=== PATIENT | male | born 1950 ===

== ENCOUNTER 2017-06-09 05:46 | Inpatient (IN) | payer MEDICAID, OTHER ==
[2017-06-09] MEDS ORDERED: Bismuth Subsalicylate 262 mg/15 ml Sus (240 ml) PO PRN (06:45)
[2017-06-09] MEDS ORDERED: Magnesium Hydroxide Susp 30 ml UD PO PRN (06:45)
[2017-06-09] MEDS ORDERED: Alum-Mag Hydrox-Simethicone Susp (30 mL) PO PRN (06:45)
[2017-06-09 06:49] VITALS: BMI 27.3
[2017-06-09 08:41] LABS: T4 6.93 ug/dl (5.5-11.0)
[2017-06-09 08:54] LABS: THYROID STIMULATING HORMONE 1.16 mIU/ML (0.46-4.68)
[2017-06-09 10:47] LABS: IRON 75 ug/dL (49-181)
[2017-06-09 12:12] LABS: FOLATE 10.5 ng/mL
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
[2017-06-10 07:40] LABS: BASO # 0.1 K/uL (0.0-0.2); BASO % 0.9 % (0.0-2.0); EOS # 0.3 K/uL (0.0-0.7); EOS % 5.2 % (0.0-4.0); HEMATOCRIT 41.4 % (35.0-51.0); LYMPH # 2.3 K/uL (1.0-4.3); MEAN CELL VOLUME 86.6 fl (80.0-94.0); MEAN CORPUSCULAR HEMOGLOBIN 28.2 pg (27.0-31.0); MEAN CORPUSCULAR HGB CONC 32.6 g/dL (33.0-37.0); MEAN PLATELET VOLUME 9.6 fl (7.2-11.7); MONO # 0.6 K/uL (0.0-0.8); MONO % 10.9 % (0.0-10.0); NEUT # 2.4 K/uL (1.8-7.0); NRBC % 0.1 % (0.0-0.0); RED CELL DISTRIBUTION WIDTH 14.8 % (11.5-14.5); WHITE BLOOD COUNT 5.6 K/uL (4.8-10.8)
[2017-06-10 08:02] LABS: ALB/GLOB RATIO 1.4 (1.0-2.1); ALKALINE PHOSPHATASE 38 U/L (38-126); ALT/SGPT 40 U/L (21-72); AST/SGOT 24 U/L (17-59); BILIRUBIN,TOTAL 0.5 mg/dl (0.2-1.3); BLOOD UREA NITROGEN 20 mg/dl (9-20); CARBON DIOXIDE 28 mmol/L (22-30); CHLORIDE 107 mmol/L (98-107); GFR AFRICAN-AMERICAN > 60; GLUCOSE,RANDOM 91 mg/dL (75-110); POTASSIUM 4.1 MMOL/L (3.6-5.0); SODIUM 142 mmol/l (132-148); TOTAL PROTEIN 6.7 G/DL (6.3-8.2)
--- NOTE | 2017-06-10 09:51 | PCM.PYCHPN ---
Psychiatric Progress Note - Psychiatric Progress Note Patient seen today, length of contact: Patient evaluated, case discussed with team, chart reviewed, 35 min Patient Chief Complaint: "I'm depressed" Problems Identified/Issues Discussed: Patient reports that he is starting to feeling a little better. He denies current auditory hallucinations. He reports that restarting his medications is making him sleepy, but otherwise denies adverse effects. We discussed that we would continues his medications at their current doses for now and reassess if modifications are indicated. Medication Change: No Medical Record Reviewed: Yes Consults ordered or reviewed: Medicine consult pending Mental Status Examination - Cognitive Function Orientation: Person, Place, Situation, Time Memory: Intact Association: WNL - Mood Mood: Depressed - Affect Affect: Depressed - Speech Speech: Appropriate - Formal Thought Process Formal Thought Process: No Impairment Psychotic Thoughts and Behaviors: Denies current AH/VH/delusions/paranoia - Suicidal Ideation Suicidal Ideation: No - Homicidal Ideation Homicidal Ideation: No Goal/Treatment Plan - Goal/Treatment Plan Need for Continued Stay: Remain at risks for inpatient hospitalization, Severe depression anxiety, Discharge may exacerbated symptoms Progress Toward Problem(s) and Goals/Treatment Plan: Major Depressive Disorder w/ psychosis -Continue Cogentin 1 mg PO HS, Lexapro 20 mg PO Daily, Haldol 5 mg PO HS, Seroquel 100 mg PO HS -VPA <10; no clinical indication to restart Depakote at this time -Medicine consult pending (patient reports that he takes Tylenol #3 or 4 for chronic pain) -Individual and group therapy -Disposition planning Estimated Date of D/C: 06/14/17
--- NOTE | 2017-06-10 14:19 | CP.PCM.CON ---
History of Present Illness - History of Present Illness History of Present Illness: REASON FOR CONSULT: per hospital protocol 67 year old male with no past medical history but with prior psychiatric admissions, states he is admitted for depression. Has no other complaints at this time. Review of Systems - Review of Systems Review of Systems: PER HPI ALL OTHER SYSTEMS REVIEWED AND NEG Past Patient History - Infectious Disease Hx of Infectious Diseases: None - Tetanus Immunizations Tetanus Immunization: Unknown - Past Medical History & Family History Past Medical History?: Yes - Past Social History Smoking Status: Heavy Smoker > 10 Cigarettes Daily - CARDIAC Hx Hypertension: No - PULMONARY Hx Asthma: Yes - NEUROLOGICAL Hx Seizures: No - HEENT Hx Cataracts: Yes (cataract surgery bilat) - RENAL Hx Chronic Kidney Disease: No - ENDOCRINE/METABOLIC Hx Endocrine Disorders: No - HEMATOLOGICAL/ONCOLOGICAL Hx Blood Disorders: No Hx Human Immunodeficiency Virus (HIV): No - INTEGUMENTARY Hx Dermatological Problems: No - MUSCULOSKELETAL/RHEUMATOLOGICAL Hx Back Pain: Yes Hx Falls: No Hx Herniated Disk: Yes (cervical) - GASTROINTESTINAL Hx Diarrhea: No Hx Hemorrhoids: Yes - GENITOURINARY/GYNECOLOGICAL Hx Genitourinary Disorders: No Hx Sexually Transmitted Disorders: No - PSYCHIATRIC Hx Substance Use: No - SURGICAL HISTORY Hx Surgeries: Yes Hx Cataract Extraction: Yes (LEFT EYE) - ANESTHESIA Hx Anesthesia: Yes Hx Anesthesia Reactions: No Hx Malignant Hyperthermia: No Meds Allergies/Adverse Reactions: Allergies Allergy/AdvReac Type Severity Reaction Status Date / Time No Known Allergies Allergy Verified 06/09/17 06:44 - Medications Medications: Current Medications Acetaminophen (Tylenol 325mg Tab) 650 mg PO Q4 PRN PRN Reason: Pain, moderate (4-7) Al Hydrox/Mg Hydrox/Simethicone (Maalox Plus 30 Ml) 30 ml PO Q4 PRN PRN Reason: Dyspepsia Albuterol (Ventolin Hfa 90 Mcg/Actuation (8 G)) 2 puff IH RQ6 PRN PRN Reason: Shortness of Breath Benztropine Mesylate (Cogentin) 1 mg PO HS REPLACED BY [facility] Last Admin: 06/09/17 21:26 Dose: 1 mg Bismuth Subsalicylate (Pepto-Bismol) 524 mg PO Q4 PRN PRN Reason: Diarrhea Escitalopram Oxalate (Lexapro) 20 mg PO DAILY REPLACED BY [facility] Last Admin: 06/10/17 08:44 Dose: 20 mg Haloperidol (Haldol) 5 mg PO HS REPLACED BY [facility] Last Admin: 06/09/17 21:26 Dose: 5 mg Lorazepam (Ativan) 0.5 mg PO HS PRN PRN Reason: Insomnia Stop: 06/23/17 06:46 Lorazepam (Ativan) 0.5 mg PO Q6 PRN PRN Reason: Anixety/Agitation Stop: 06/23/17 06:46 Last Admin: 06/09/17 09:16 Dose: 0.5 mg Magnesium Hydroxide (Milk Of Magnesia) 30 ml PO HS PRN PRN Reason: Constipation Quetiapine Fumarate (Seroquel) 100 mg PO HS REPLACED BY [facility] Last Admin: 06/09/17 21:26 Dose: 100 mg Tamsulosin HCl (Flomax) 0.4 mg PO DAILY REPLACED BY [facility] Last Admin: 06/10/17 08:44 Dose: 0.4 mg Physical Exam - Constitutional Appears: Non-toxic, No Acute Distress - Head Exam Head Exam: ATRAUMATIC, NORMOCEPHALIC - Eye Exam Eye Exam: EOMI, Normal appearance, PERRL - ENT Exam ENT Exam: Mucous Membranes Moist, Normal Exam - Neck Exam Neck exam: Positive for: Normal Inspection - Respiratory Exam Respiratory Exam: Clear to Auscultation Bilateral, NORMAL BREATHING PATTERN - Cardiovascular Exam Cardiovascular Exam: REGULAR RHYTHM - GI/Abdominal Exam GI & Abdominal Exam: Normal Bowel Sounds, Soft. absent: Tenderness - Extremities Exam Extremities exam: Positive for: normal capillary refill, normal inspection, pedal pulses present - Back Exam Back exam: absent: CVA tenderness (L), CVA tenderness (R) - Neurological Exam Neurological exam: Alert, CN II-XII Intact, Normal Gait, Oriented x3, Reflexes Normal - Psychiatric Exam Psychiatric exam: Normal Affect, Normal Mood - Skin Skin Exam: Dry, Intact, Normal Color, Warm Results - Vital Signs Recent Vital Signs: Last Vital Signs Temp 97.7 F 06/10/17 06:00 Pulse 64 06/10/17 06:00 Resp 18 06/10/17 06:00 BP 127/67 06/10/17 06:00 Pulse Ox - Labs Result Diagrams: 06/10/17 06:50 06/10/17 06:50 Labs: Laboratory Results - last 24 hr 06/10/17 06/10/17 06/10/17 06:50 06:50 06:50 WBC 5.6 RBC 4.78 Hgb 13.5 Hct 41.4 MCV 86.6 MCH 28.2 MCHC 32.6 L RDW 14.8 H Plt Count 174 MPV 9.6 Neut % (Auto) 42.0 L Lymph % (Auto) 41.0 H Haakon % (Auto) 10.9 H Eos % (Auto) 5.2 H Baso % (Auto) 0.9 Neut # 2.4 Lymph # 2.3 Haakon # 0.6 Eos # 0.3 Baso # 0.1 Sodium 142 Potassium 4.1 Chloride 107 Carbon Dioxide 28 Anion Gap 11 BUN 20 Creatinine 1.0 Est GFR ( Amer) > 60 Est GFR (Non-Af Amer) > 60 Random Glucose 91 Calcium 9.0 Total Bilirubin 0.5 AST 24 ALT 40 Alkaline Phosphatase 38 Total Protein 6.7 Albumin 3.9 Globulin 2.8 Albumin/Globulin Ratio 1.4 Valproic Acid < 10.0 L Assessment & Plan - Assessment and Plan (Free Text) Plan: 67 YEAR OLD MALE NO PMH ADMITTED FOR DEPRESSION DEPRESSION MANAGEMENT PER PSYCH TEAM
[2017-06-10] MEDS: Albuterol HFA 90 mcg/actuation (8 g) IH PRN (21:02)
[2017-06-11] MEDS: Albuterol HFA 90 mcg/actuation (8 g) IH PRN (09:56)
--- NOTE | 2017-06-11 10:49 | CP.PCM.CON ---
History of Present Illness - History of Present Illness History of Present Illness: Pt is a 67 year old male admitted to the geropsych unit and referred to the database report writer for evaluation. ON the DRS, pt scored an overall score of 124. Pt 's Attention, Construction, Conceptualization, Memory and Initiation skills all fell within the normal limits. Testing did not reveal cognitive deficits though patient spoke of confusion and memory issues at times. Overall 124 (Within normal limits) Thank you, Dr. Roca Past Patient History - Infectious Disease Hx of Infectious Diseases: None - Tetanus Immunizations Tetanus Immunization: Unknown - Past Medical History & Family History Past Medical History?: Yes - Past Social History Smoking Status: Heavy Smoker > 10 Cigarettes Daily - CARDIAC Hx Hypertension: No - PULMONARY Hx Asthma: Yes - NEUROLOGICAL Hx Seizures: No - HEENT Hx Cataracts: Yes (cataract surgery bilat) - RENAL Hx Chronic Kidney Disease: No - ENDOCRINE/METABOLIC Hx Endocrine Disorders: No - HEMATOLOGICAL/ONCOLOGICAL Hx Blood Disorders: No Hx Human Immunodeficiency Virus (HIV): No - INTEGUMENTARY Hx Dermatological Problems: No - MUSCULOSKELETAL/RHEUMATOLOGICAL Hx Back Pain: Yes Hx Falls: No Hx Herniated Disk: Yes (cervical) - GASTROINTESTINAL Hx Diarrhea: No Hx Hemorrhoids: Yes - GENITOURINARY/GYNECOLOGICAL Hx Genitourinary Disorders: No Hx Sexually Transmitted Disorders: No - PSYCHIATRIC Hx Substance Use: No - SURGICAL HISTORY Hx Surgeries: Yes Hx Cataract Extraction: Yes (LEFT EYE) - ANESTHESIA Hx Anesthesia: Yes Hx Anesthesia Reactions: No Hx Malignant Hyperthermia: No Meds Allergies/Adverse Reactions: Allergies Allergy/AdvReac Type Severity Reaction Status Date / Time No Known Allergies Allergy Verified 06/09/17 06:44 - Medications Medications: Current Medications Acetaminophen (Tylenol 325mg Tab) 650 mg PO Q4 PRN PRN Reason: Pain, moderate (4-7) Al Hydrox/Mg Hydrox/Simethicone (Maalox Plus 30 Ml) 30 ml PO Q4 PRN PRN Reason: Dyspepsia Albuterol (Ventolin Hfa 90 Mcg/Actuation (8 G)) 2 puff IH RQ6 PRN PRN Reason: Shortness of Breath Last Admin: 06/11/17 09:56 Dose: 2 puff Benztropine Mesylate (Cogentin) 1 mg PO HS SANDRO Last Admin: 06/10/17 21:01 Dose: 1 mg Bismuth Subsalicylate (Pepto-Bismol) 524 mg PO Q4 PRN PRN Reason: Diarrhea Escitalopram Oxalate (Lexapro) 20 mg PO DAILY [facility] Last Admin: 06/11/17 09:52 Dose: 20 mg Haloperidol (Haldol) 5 mg PO HS [facility] Last Admin: 06/10/17 21:01 Dose: 5 mg Lorazepam (Ativan) 0.5 mg PO HS PRN PRN Reason: Insomnia Stop: 06/23/17 06:46 Lorazepam (Ativan) 0.5 mg PO Q6 PRN PRN Reason: Anixety/Agitation Stop: 06/23/17 06:46 Last Admin: 06/09/17 09:16 Dose: 0.5 mg Magnesium Hydroxide (Milk Of Magnesia) 30 ml PO HS PRN PRN Reason: Constipation Nicotine (Nicoderm Cq) 1 patch TD DAILY [facility] Last Admin: 06/11/17 09:55 Dose: 1 patch Quetiapine Fumarate (Seroquel) 100 mg PO HS [facility] Last Admin: 06/10/17 21:01 Dose: 100 mg Tamsulosin HCl (Flomax) 0.4 mg PO DAILY [facility] Last Admin: 06/11/17 09:52 Dose: 0.4 mg Results - Vital Signs Recent Vital Signs: Last Vital Signs Temp 97.2 F L 06/11/17 05:55 Pulse 68 06/11/17 05:55 Resp 18 06/11/17 05:55 BP 116/61 06/11/17 05:55 Pulse Ox - Labs Result Diagrams: 06/10/17 06:50 06/10/17 06:50
--- NOTE | 2017-06-11 12:05 | PCM.PYCHPN ---
Psychiatric Progress Note - Psychiatric Progress Note Patient seen today, length of contact: Patient evaluated, case discussed with team, chart reviewed, 35 min Patient Chief Complaint: "I'm starting to feel better." Problems Identified/Issues Discussed: Patient reports that he is starting to feel better. He denies current auditory hallucinations, but reports sometimes he hears a ringing in his ears. We discussed that he may benefit from reducing his current regimen from two antipsychotics to monotherapy. He denies current adverse effects to medications. Medication Change: Yes (Stop Haldol and cogentin, Increase Seroquel to 200 mg PO HS) Medical Record Reviewed: Yes Consults ordered or reviewed: Psychology consult: Pt is a 67 year old male admitted to the geropsych unit and referred to the medical writer for evaluation. ON the DRS, pt scored an overall score of 124. Pt 's Attention, Construction, Conceptualization, Memory and Initiation skills all fell within the normal limits. Testing did not reveal cognitive deficits though patient spoke of confusion and memory issues at times. Overall 124 (Within normal limits) Thank you, Dr. Roca Mental Status Examination - Cognitive Function Orientation: Person, Place, Situation, Time Memory: Intact Attention: WNL Concentration: WNL Association: WNL Fund of Knowledge: WNL - Mood Mood: Depressed - Affect Affect: Broad - Speech Speech: Appropriate - Formal Thought Process Formal Thought Process: No Impairment Psychotic Thoughts and Behaviors: Denies current AH/VH/delusions/paranoia - Suicidal Ideation Suicidal Ideation: No - Homicidal Ideation Homicidal Ideation: No Goal/Treatment Plan - Goal/Treatment Plan Need for Continued Stay: Remain at risks for inpatient hospitalization, Severe depression anxiety, Discharge may exacerbated symptoms Progress Toward Problem(s) and Goals/Treatment Plan: Major Depressive Disorder w/ psychosis, starting to improve clinically -Stop haldol and cogentin -Continue Lexapro 20 mg PO Daily -Increase Seroquel to 200 mg PO HS -VPA <10; no clinical indication to restart Depakote at this time -Medicine consult appreciated -Psychology consult appreciated -Individual and group therapy -Disposition planning Estimated Date of D/C: 06/14/17 - Smoking Cessation Smoking Cessation Initiated: Yes
[2017-06-12] MEDS: Albuterol HFA 90 mcg/actuation (8 g) IH PRN ×2 (08:57→19:54)
--- NOTE | 2017-06-12 09:48 | PCM.PYCHPN ---
Psychiatric Progress Note - Psychiatric Progress Note Patient seen today, length of contact: Patient evaluated, case discussed with team, chart reviewed, 35 min Patient Chief Complaint: pt is less depresesed and less anxious and denies hallucinations Medication Change: Yes (Stop Haldol and cogentin, Increase Seroquel to 200 mg PO HS) Medical Record Reviewed: Yes Mental Status Examination - Cognitive Function Orientation: Person, Place, Situation, Time Memory: Intact Attention: WNL Concentration: WNL Association: WNL Fund of Knowledge: WNL - Mood Mood: Depressed - Affect Affect: Broad - Speech Speech: Appropriate - Formal Thought Process Formal Thought Process: No Impairment - Suicidal Ideation Suicidal Ideation: No - Homicidal Ideation Homicidal Ideation: No Goal/Treatment Plan - Goal/Treatment Plan Need for Continued Stay: Remain at risks for inpatient hospitalization, Severe depression anxiety, Discharge may exacerbated symptoms Progress Toward Problem(s) and Goals/Treatment Plan: continue to titrate meds including seroquel Estimated Date of D/C: 06/14/17
[2017-06-13] MEDS: Albuterol HFA 90 mcg/actuation (8 g) IH PRN (21:24)
[2017-06-14 06:22] VITALS: BP 124/66; PULSE 79; RESP 18; TEMP 97.1
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
== END 2017-06-14 10:51 | disposition home or self-care (01) | DRG 430 ==
LOC: H.EDDOWN 05:46 → H.STEP 06:13
PROVIDERS: ADMIT Psychiatry & Neurology Psychiatry; ATTEND Psychiatry & Neurology Psychiatry
PROC: GZHZZZZ Group Psychotherapy (ICD-10-PCS; principal; 2017-06-09)
DX: F32.3 Major depressive disorder, single episode, severe with psychotic features (principal); R45.851 Suicidal ideations; F41.9 Anxiety disorder, unspecified; J45.909 Unspecified asthma, uncomplicated; N40.0 Benign prostatic hyperplasia without lower urinary tract symptoms; F17.210 Nicotine dependence, cigarettes, uncomplicated

== ENCOUNTER 2017-09-12 19:43 | Inpatient (IN) | payer OTHER ==
[2017-09-12 19:43] VITALS: BMI 27.3
[2017-09-12 21:31] LABS: HEMATOCRIT 47.2 % (35.0-51.0); MEAN CELL VOLUME 83.7 fl (80.0-94.0); MEAN CORPUSCULAR HEMOGLOBIN 28.2 pg (27.0-31.0); MEAN CORPUSCULAR HGB CONC 33.7 g/dL (33.0-37.0); RED CELL DISTRIBUTION WIDTH 14.8 % (11.5-14.5); WHITE BLOOD COUNT 6.6 K/uL (4.8-10.8)
--- NOTE | 2017-09-12 21:33 | ED PDOC ---
- ECG O2 Sat by Pulse Oximetry: 99 Disposition - Disposition
--- NOTE | 2017-09-12 21:37 | ED PDOC ---
HPI: Psych/Substance Abuse Time Seen by Provider: 09/12/17 20:21 Chief Complaint (Nursing): Anxiety Chief Complaint (Provider): Anxiety History Per: Patient History/Exam Limitations: no limitations Current Symptoms Are (Timing): Still Present Associated Symptoms: Anxiety Additional Complaint(s): Pool Amos, a 67 year old male, with a past medical history of depression, anxiety and schizophenia presents to the ED for anxiety. As per patient, he has not taken his psychiatric medications for 3 days because his insurance ran out. Patient states he has prescriptions for depression, anxiety and auditory hallucinations. Patient also notes some left sided chest pain. PMD: Dr. Lane Past Medical History Reviewed: Historical Data, Nursing Documentation, Vital Signs Vital Signs: Last Vital Signs Temp 98 F 09/12/17 19:45 Pulse 92 H 09/12/17 19:45 Resp 18 09/12/17 19:45 BP 136/89 09/12/17 19:45 Pulse Ox 99 09/12/17 19:45 - Medical History PMH: Anxiety, Asthma, Benign Prostatic Hyperplasia, Depression, Schizophrenia Denies: HIV, HTN, Chronic Kidney Disease, Seizures, Sexually Transmitted Disease - Surgical History Other surgeries: b/l cataract surgery - Family History Family History: States: Unknown Family Hx - Social History Current smoker - smoking cessation education provided: Yes (Heavy Smoker > 10 Cigarettes Daily) Ex-Smoker (has not smoked in the last 12 months): Yes Alcohol: None Drugs: Denies - Immunization History Hx Tetanus Toxoid Vaccination: No Hx Influenza Vaccination: No Hx Pneumococcal Vaccination: No - Home Medications Home Medications: Ambulatory Orders Medication Instructions Recorded Albuterol HFA [Ventolin HFA 90 2 puff IH [id number] PRN #1 06/14/17 mcg/actuation (8 g)] Escitalopram [Lexapro] 20 mg PO DAILY #30 tab 06/14/17 Nicotine 7 mg/24 hr [Nicoderm CQ] 1 patch TD DAILY #30 patch 06/14/17 QUEtiapine [SEROquel] 200 mg PO HS #30 tab 06/14/17 Tamsulosin [Flomax] 0.4 mg PO DAILY #30 cap 06/14/17 - Allergies Allergies/Adverse Reactions: Allergies Allergy/AdvReac Type Severity Reaction Status Date / Time No Known Allergies Allergy Verified 07/26/17 06:44 Review of Systems ROS Statement: Except As Marked, All Systems Reviewed And Found Negative Constitutional: Positive for: Other (tremors) Cardiovascular: Positive for: Chest Pain (left sided) Psych: Positive for: Anxiety Physical Exam - Reviewed Nursing Documentation Reviewed: Yes Vital Signs Reviewed: Yes - Physical Exam Appears: Positive for: Non-toxic, No Acute Distress Head Exam: Positive for: ATRAUMATIC, NORMAL INSPECTION, NORMOCEPHALIC Skin: Positive for: Normal Color, Warm, Dry. Negative for: Rash Eye Exam: Positive for: Normal appearance, EOMI, PERRL. Negative for: Nystagmus ENT: Positive for: Normal ENT Inspection. Negative for: Nasal Congestion, Pharyngeal Erythema, Tonsillar Exudate, Tonsillar Swelling Neck: Positive for: Normal, Painless ROM, Supple Cardiovascular/Chest: Positive for: Regular Rate, Rhythm, Chest Non Tender. Negative for: Tachycardia Respiratory: Positive for: Normal Breath Sounds. Negative for: Rales, Rhonchi, Wheezing, Respiratory Distress Gastrointestinal/Abdominal: Positive for: Normal Exam, Bowel Sounds, Soft. Negative for: Tenderness, Mass, Guarding, Rebound Back: Positive for: Normal Inspection. Negative for: L CVA Tenderness, R CVA Tenderness Extremity: Positive for: Normal ROM. Negative for: Tenderness, Deformity, Swelling Neurologic/Psych: Positive for: Alert, Oriented, Gait. Negative for: Motor/ Sensory Deficits - Laboratory Results Result Diagrams: 09/12/17 21:21 09/12/17 21:21 - ECG O2 Sat by Pulse Oximetry: 99 (RA) Pulse Ox Interpretation: Normal Medical Decision Making Medical Decision Makin Initial Impression: 67 year old male presenting with anxiety and left sided chest pain Initial Plan: * EKG * Alcohol Serum * CMP * Troponin I * CBC * CXR * Ativan 1mg PO * Reevaluation Labs normal. Discussed with Dr. Garza. Pending crisis evaluation. Endorsed to MY[facility] Copeland Scribe Attestation Documented by Melina Vela acting as a scribe for Jaqueline Nova PA-C. Scribe Attestation All medical record entries made by the Scribe were at my direction and personally dictated by me. I have reviewed the chart and agree that the record accurately reflects my personal performance of the history, physical exam, medical decision making, and the department course for this patient. I have also personally directed, reviewed, and agree with the discharge instructions and disposition. Disposition - Clinical Impression Clinical Impression: Anxiety - Patient ED Disposition Is Patient to be Admitted: Transfer of Care - Disposition Disposition: Transfer of Care Disposition Time: 00:02 Condition: STABLE Forms: [employer] ([place] Citizen)
[2017-09-12] MEDS ORDERED: Nitroglycerin 2% Ointment Foilpak UD TOP STA (21:38)
[2017-09-12 21:42] LABS: ALB/GLOB RATIO 1.4 (1.0-2.1); ALCOHOL SERUM < 10 mg/dl (0-10); ALKALINE PHOSPHATASE 43 U/L (38-126); ALT/SGPT 43 U/L (21-72); AST/SGOT 28 U/L (17-59); BILIRUBIN,TOTAL 0.5 mg/dl (0.2-1.3); BLOOD UREA NITROGEN 19 mg/dl (9-20); CALCIUM 9.9 mg/dL (8.4-10.2); CARBON DIOXIDE 30 mmol/L (22-30); CHLORIDE 101 mmol/L (98-107); GFR AFRICAN-AMERICAN > 60; GLUCOSE,RANDOM 92 mg/dL (75-110); POTASSIUM 4.1 MMOL/L (3.6-5.0); SODIUM 144 mmol/l (132-148); TOTAL PROTEIN 8.5 G/DL (6.3-8.2)
[2017-09-12] MEDS ORDERED: Permethrin 5% CREAM TOP ONE (21:55)
--- NOTE | 2017-09-13 01:35 | ED PDOC ---
- Laboratory Results Result Diagrams: 09/12/17 21:21 09/12/17 21:21 - ECG O2 Sat by Pulse Oximetry: 99 (RA) - Progress ED Course And Treament: case signed out to science writer, pending crisis screening. Medical Decision Making Medical Decision Making: pt will be admitted for depression under MD Zuhair stable for admission. Disposition - Clinical Impression Clinical Impression: Depression - POA Present On Arrival: None - Disposition Disposition: Admitted as In-Patient Disposition Time: 01:35 Condition: STABLE Forms: [employer] ([place]alese) Progress Note - Review of Symptoms General: No: Chills, Night Sweats, Fatigue, Malaise, Appetite, Other HEENT: No: Head Aches, Visual Changes, Eye Pain, Ear Pain, Dysphasia, Sinus Congestion, Post Nasal Drip, Sore Throat, Other Pulmonary: No: Dyspnea, Cough, Pleuritic Chest Pain, Other Cardiovascular: No: Chest Pain, Palpitations, Orthopnea, Paroxysmal Noc. Dyspnea , Edema, Light Headedness, Other Gastrointestinal: No: Nausea, Vomiting, Abdominal Pain, Diarrhea, Constipation, Melena, Hematochezia, Other Genitourinary: No: Dysuria, Frequency, Incontinence, Hematuria, Retention, Other Musculoskeletal: No: Muscle Pain, Joint Pain, Other Neurological: No: Weakness, Numbness, Incoordination, Change in speech, Confusion, Seizures, Other
[2017-09-13 01:59] VITALS: O2SAT 100
[2017-09-13] MEDS ORDERED: Bismuth Subsalicylate 262 mg/15 ml Sus (240 ml) PO PRN (04:36)
[2017-09-13] MEDS ORDERED: Alum-Mag Hydrox-Simethicone Susp (30 mL) PO PRN (04:36)
[2017-09-13] MEDS ORDERED: Magnesium Hydroxide Susp 30 ml UD PO PRN (04:36)
--- NOTE | 2017-09-13 04:49 | PCM.BM ---
<SurinderanthonyJabariKangsaundra Rudd - Last Filed: 09/13/17 04:47> Treatment Plan Problems - Problems identified on initial assessmt Hopelessness/Helplessness Date Initiated: 09/13/17 Time Initiated: 04:47 Assessment reference: NA Status: Active Treatment assets and liabiliti Patient Assests: adapts well, cooperative, negotiates basic needs Patient Liabilities: live alone, financial problems - Milieu Protocol Maintain good personal hygiene: daily Encourage regular showers, daily Remind patient to perform daily oral care, daily Assist patient to perform ADL's Maintain personal safety: every shift Educate patient to report safety concerns to staff, every shift Monitor environment for contraband/sharps Medication safety: Monitor for expected outcome, potential side effects: every shift, Assess barriers to learning: every shift, Assess readiness for medication education: every shift <Joslyn Umana - Last Filed: 09/13/17 11:06> - Diagnosis (1) Severe recurrent major depression w/psychotic features, mood-congruent Status: Acute Interventions: Medication management, Individual and group therapy, Psychoeducation 09/13/17 11:06 <Savana Dash M - Last Filed: 09/13/17 14:15> Treatment Plan Problems - Problems identified on initial assessmt Hopelessness/Helplessness Priority: 1 Medication Nonadherence Date Initiated: 09/13/17 Time Initiated: 14:13 Assessment reference: HP, SW, NA Status: Active Priority: 2 Family Contact Family involvement: Famliy/SO not involved - Outside Agency [facility] Care involvment: Information-sharing Agency contact name: Dr. Santos MD Agency contact number: [phone] Discharge/Continuing Care - Education Needs Education Needs: Patient Medication, Patient Diagnosis/Disease Process, Patient Coping Skills, Patient Anger Management skills, Patient Placement options, Patient Personal Hygiene/Grooming, Patient Aftercare Safety Plan - Discharge Discharge Criteria: Tolerates medication w/o severe side effects, Free of Suicidal thoughts, Normal sleep pattern, Ability to care for self, Reduction of target symptoms Discharge to:: Home - Additional Comments 09/13/17 14:14 Pt seen and discussed in team meeting. Reason for admission reviewed and discussed. Pt's medical and social issues discussed. Pt's medications reviewed and discussed. Tx plan reviewed and discussed; pt is agreeable. Tower Equipment Repairer to continue to follow pt on the unit. - Treatment Team Participation Discussed with Family/SO: No Was Patient/Family/SO present at Treatment Team Meeting: Yes
[2017-09-13] MEDS ORDERED: Pneumococcal 23-Valent Vaccine IM ONE (06:00)
[2017-09-13] MEDS ORDERED: Influenza Vaccine 18yr & older 0.5 ML/45 MCG SYR IM ONE (06:00)
[2017-09-13 07:09] LABS: IRON 74 ug/dL (49-181)
[2017-09-13 07:26] LABS: T4 5.67 ug/dl (5.5-11.0)
[2017-09-13 07:39] LABS: THYROID STIMULATING HORMONE 1.07 mIU/ML (0.46-4.68)
--- NOTE | 2017-09-13 08:56 | RAD ---
HISTORY: chest pain COMPARISON: 12/14/2014 TECHNIQUE: Chest PA and lateral FINDINGS: LUNGS: No active pulmonary disease. PLEURA: No significant pleural effusion identified. No pneumothorax apparent. CARDIOVASCULAR: Normal. OSSEOUS STRUCTURES: No significant abnormalities. VISUALIZED UPPER ABDOMEN: Normal. OTHER FINDINGS: None. IMPRESSION: No active disease.
--- NOTE | 2017-09-13 09:34 | CP.PCM.CON ---
History of Present Illness - History of Present Illness History of Present Illness: 67 y/o male seen at bedside in psych unit after consult for medical evaluation. Pt states he came into the ED because he was having anxiety and panic attacks. Pt states he has been feeling suicidal and that due to changes in his insurance he is unable to get his medications. Pt has also been experiencing chest pain associated with a cough for approx 1-2 months in duration. Pt denies any mucus or phlegm associated with his cough, and admits it is worsened by smoking cigarettes. Pt states he has asthma so he occasionally experiences shortness of breath, for which he uses an inhaler. Pt states he is no longer feeling chest pain at this time and denies any acute events overnight. Pt admits to increased urinary frequency and discomfort as he has to go often but very little comes out. Pt states he slept well and has no physical complaints. Pt admits to a chronic history of cervical spine tenderness, for which he sees a neurologist. Pt denies F/C/N/V. Pt denies abdominal pain, diarrhea or constipation. PMH: asthma PSH: B/L cataract surgeries All: NKDA Social: 5 cigs/day. Denies EtOH or illicit drug use Family: denies family history of heart disease, cancer, or stroke Review of Systems - Review of Systems All systems: reviewed and no additional remarkable complaints except (per HPI) Past Patient History - Infectious Disease Hx of Infectious Diseases: None - Tetanus Immunizations Tetanus Immunization: Unknown - Past Medical History & Family History Past Medical History?: Yes - Past Social History Alcohol: None Drugs: Denies - CARDIAC Hx Hypertension: No - PULMONARY Hx Asthma: Yes - NEUROLOGICAL Hx Seizures: No - HEENT Hx Cataracts: Yes (cataract surgery bilat) - RENAL Hx Chronic Kidney Disease: No - ENDOCRINE/METABOLIC Hx Endocrine Disorders: No - HEMATOLOGICAL/ONCOLOGICAL Hx Human Immunodeficiency Virus (HIV): No - INTEGUMENTARY Hx Dermatological Problems: No - MUSCULOSKELETAL/RHEUMATOLOGICAL Hx Falls: Yes - GASTROINTESTINAL Hx Diarrhea: No Hx Hemorrhoids: Yes - GENITOURINARY/GYNECOLOGICAL Hx Sexually Transmitted Disorders: No - PSYCHIATRIC Hx Substance Use: No - SURGICAL HISTORY Hx Surgeries: Yes Hx Cataract Extraction: Yes (LEFT EYE) - ANESTHESIA Hx Anesthesia: Yes Hx Anesthesia Reactions: No Hx Malignant Hyperthermia: No Meds Allergies/Adverse Reactions: Allergies Allergy/AdvReac Type Severity Reaction Status Date / Time No Known Allergies Allergy Verified 06/09/17 06:44 - Medications Medications: Current Medications Acetaminophen (Tylenol 325mg Tab) 650 mg PO Q4 PRN PRN Reason: Pain, moderate (4-7) Al Hydrox/Mg Hydrox/Simethicone (Maalox Plus 30 Ml) 30 ml PO Q4 PRN PRN Reason: Dyspepsia Bismuth Subsalicylate (Pepto-Bismol) 524 mg PO Q4 PRN PRN Reason: Diarrhea Lorazepam (Ativan) 0.5 mg PO HS PRN PRN Reason: Insomnia Stop: 09/27/17 04:37 Lorazepam (Ativan) 0.5 mg PO Q6 PRN PRN Reason: Anixety/Agitation Stop: 09/27/17 04:37 Magnesium Hydroxide (Milk Of Magnesia) 30 ml PO HS PRN PRN Reason: Constipation Physical Exam - Head Exam Head Exam: ATRAUMATIC, NORMOCEPHALIC - Eye Exam Eye Exam: EOMI, PERRL Pupil Exam: NORMAL ACCOMODATION, PERRL - ENT Exam ENT Exam: Mucous Membranes Moist, Normal Exam - Neck Exam Neck exam: Positive for: Full Rom, Tenderness Additional comments: tenderness at level of C4-C7 on deep palpation. Pt able to perform full ROM without tenderness - Respiratory Exam Respiratory Exam: Clear to Auscultation Bilateral, NORMAL BREATHING PATTERN. absent: Rales, Wheezes, Respiratory Distress, Stridor - Cardiovascular Exam Cardiovascular Exam: REGULAR RHYTHM, +S1, +S2. absent: Gallop, JVD, Systolic Murmur - GI/Abdominal Exam GI & Abdominal Exam: Normal Bowel Sounds, Soft. absent: Distended, Guarding - Rectal Exam Rectal Exam: Deferred - Extremities Exam Extremities exam: Positive for: normal capillary refill, normal inspection, pedal pulses present. Negative for: calf tenderness, pedal edema - Back Exam Back exam: vertebral tenderness Additional comments: tenderness at level of distal C-spine, elicited with deep palpation - Neurological Exam Neurological exam: Alert, Oriented x3 - Psychiatric Exam Psychiatric exam: Anxious - Skin Skin Exam: Intact, Normal Color Results - Vital Signs Recent Vital Signs: Last Vital Signs Temp 97.7 F 09/13/17 05:28 Pulse 67 09/13/17 05:28 Resp 20 09/13/17 05:28 BP 113/69 09/13/17 05:28 Pulse Ox 100 09/13/17 01:58 - Labs Result Diagrams: 09/12/17 21:21 09/12/17 21:21 Labs: Laboratory Results - last 24 hr 09/12/17 09/12/17 09/13/17 21:21 21:21 02:06 WBC 6.6 RBC 5.64 Hgb 15.9 D Hct 47.2 MCV 83.7 D MCH 28.2 MCHC 33.7 RDW 14.8 H Plt Count 229 Sodium 144 Potassium 4.1 Chloride 101 Carbon Dioxide 30 Anion Gap 17 BUN 19 Creatinine 0.9 Est GFR ( Amer) > 60 Est GFR (Non-Af Amer) > 60 Random Glucose 92 Calcium 9.9 Iron TIBC % Saturation Ferritin Total Bilirubin 0.5 AST 28 ALT 43 Alkaline Phosphatase 43 Troponin I < 0.0120 Total Protein 8.5 H Albumin 5.0 D Globulin 3.6 Albumin/Globulin Ratio 1.4 Triglycerides Cholesterol LDL Cholesterol Direct HDL Cholesterol Vitamin B12 Free T4 Thyroxine (T4) TSH 3rd Generation Urine Opiates Screen Negative Urine Methadone Screen Negative Ur Barbiturates Screen Negative Ur Phencyclidine Scrn Negative Ur Amphetamines Screen Negative U Benzodiazepines Scrn Negative U Oth Cocaine Metabols Negative U Cannabinoids Screen Negative Alcohol, Quantitative < 10 09/13/17 09/13/17 09/13/17 06:15 06:15 06:15 WBC RBC Hgb Hct MCV MCH MCHC RDW Plt Count Sodium Potassium Chloride Carbon Dioxide Anion Gap BUN Creatinine Est GFR ( Amer) Est GFR (Non-Af Amer) Random Glucose Calcium Iron 74 TIBC 295 % Saturation 25 Ferritin 65.3 Total Bilirubin AST ALT Alkaline Phosphatase Troponin I Total Protein Albumin Globulin Albumin/Globulin Ratio Triglycerides 204 H D Cholesterol 235 H LDL Cholesterol Direct 151 H HDL Cholesterol 47 Vitamin B12 260 Free T4 0.79 Thyroxine (T4) 5.67 TSH 3rd Generation 1.07 Urine Opiates Screen Urine Methadone Screen Ur Barbiturates Screen Ur Phencyclidine Scrn Ur Amphetamines Screen U Benzodiazepines Scrn U Oth Cocaine Metabols U Cannabinoids Screen Alcohol, Quantitative Assessment & Plan (1) Anxiety Assessment and Plan: psych to continue with medical management Status: Acute (2) Asthma Assessment and Plan: Continue Albuterol Status: Acute (3) Chest pain Assessment and Plan: -Initial troponin level negative, serial levels pending -asymptomatic at this time -Pain present only with non-productive cough -CXR shows no active disease Status: Acute (4) BPH (benign prostatic hyperplasia) Assessment and Plan: Continue Flomax Status: Acute (5) Hyperlipidemia Assessment and Plan: Start on Lipitor 20mg PO daily Status: Acute
--- NOTE | 2017-09-13 10:12 | PCM.PSYCH ---
Initial Psychiatric Evaluation - Initial Psychiatric Evaluation Type of Admission: Voluntary Legal Status: Capacity Chief Complaint (in patient's own words): "I'm depressed and haven't had any medication for 4 days." Patient's Reaction to Hospitalization: HPI: 67 yo male w/ history of depression w/ psychotic features, presents with worsening depression and auditory hallucinations in the context of no longer having medications due to a lapse in his insurance. He denies current suicidal ideation/plan/intent. He reported that he last heard AH yesterday of a male talking to him [place] and reports that he has also had visual hallucinations of this man. +Poor sleep/appetite/energy/concentration. Denies current drug use. 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 While CW met with pt to conduct assessment, pt reported that he contacted 911 tonight due to feeling anxious, depressed, and having SI as he does not have enough support systems in his life. Pt reported that he is financially unstable and he cannot even afford to refill his psychiatric medication due to running very low in funds. Pt stated that the last time he had his Lexapro 20mg and Remadon 45mg was about 3 days ago. Pt reported that sees a psychiatrist Dr. Hyatt and a therapist (Dave) at [facility], but they have not been able to assist him to refill his medication. Pt reported that he was having SI with no plan, but he knew he could hurt himself, if he did not come to the hospital tonight. Pt denied active HI, HP, or Intent. Pt reported that he was experiencing Auditory Hallucinations earlier today as pt stated, I heard the voice of Male, whom was telling that I was worthless and he was telling me that I was less than garbage." Pt admitted to using Alcohol, Coccaine, and Marijuana in the past; however, pt denied current used. 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 During assessment, pt was alert and oriented x3. Pt's mood is calm, affect is congruent. Pt's speech slow. Pt's thought process is clear of delusions and paranoia. Pt was not observed responding to internal or external stimuli. Pt did not present in a state of psychosis.Pt reported changes in his appetite and he described as poor. Pt also stated that he has not been sleeping much for the past 2 weeks. Medical Hx: Asthma, disc hernia, BPH PPHx: Several admissions in the past due to depression, psychosis and prior history of substance abuse (cocaine, MJ, ETOH). Suicide attempt by hanging in 2002. ALL: NKDA SHx: Lives w/ elderly man in an apartment in [place], from [place], denies current ETOH/drug. +5 cigarettes/day Current Medications: Active Medications Generic Name Dose Route Start Last Admin Trade Name Freq PRN Reason Stop Dose Admin Acetaminophen 650 mg 09/13/17 04:36 Tylenol 325mg Tab PO Q4 PRN Pain, moderate (4-7) Al Hydrox/Mg Hydrox/Simethicone 30 ml 09/13/17 04:36 Maalox Plus 30 Ml PO Q4 PRN Dyspepsia Bismuth Subsalicylate 524 mg 09/13/17 04:36 Pepto-Bismol PO Q4 PRN Diarrhea Lorazepam 0.5 mg 09/13/17 04:36 Ativan PO 09/27/17 04:37 HS PRN Insomnia Lorazepam 0.5 mg 09/13/17 04:36 Ativan PO 09/27/17 04:37 Q6 PRN Anixety/Agitation Magnesium Hydroxide 30 ml 09/13/17 04:36 Milk Of Magnesia PO HS PRN Constipation Past Psychiatric History - Past Psychiatric History Previous Treatment History: Inpatient Pertinent Medical Hx (Current Medical&Sleep Prob, Allergies): Allergies Allergy/AdvReac Type Severity Reaction Status Date / Time No Known Allergies Allergy Verified 06/09/17 06:44 Albuterol HFA [Ventolin HFA 90 mcg/actuation (8 g)] 2 puff IH [id number] PRN #1 Escitalopram [Lexapro] 20 mg PO DAILY #30 tab 06/14/17 Nicotine 7 mg/24 hr [Nicoderm CQ] 1 patch TD DAILY #30 patch 06/14/17 QUEtiapine [SEROquel] 200 mg PO HS #30 tab 06/14/17 Tamsulosin [Flomax] 0.4 mg PO DAILY #30 cap 06/14/17 Review of Systems - Psychiatric Psychiatric: As Per HPI, Abnormal Sleep Pattern, Anhedonia, Auditory Hallucinations, Behavioral Changes, Change in Appetite, Depression, Difficulty Concentrating, Hallucinations, Hopelessness, Mood Swings, Visual Hallucinations Mental Status Examination - Personal Presentation Personal Presentation: Looks stated age - Affect Affect: Depressed - Motor Activity Motor Activity: Calm - Reliability in Providing Information Reliability in Providing Information: Fair - Speech Speech: Organized - Mood Mood: Depressed - Formal Thought Process Formal Thought Process: Hallucinations (Last heard last night) - Hallucinations/Delusions Hallucinations: Auditory - Obsessions/Compulsions Obsessions: No Compulsions: No - Cognitive Functions Orientation: Person, Place, Situation, Time Sensorium: Alert Attention/Concentration: Attentive Estimate of Intelligence: Average Judgement: Intact, as evidence by: Insight regarding need for hospitalization Memory: Recent intact, as evidence by: Ability to recall events of the day, Remote intact, as evidenced by: Abilit to recall sig. life events, Remote intact , as evidenced by: Ability to recall historical events - Risk Risk: Diminished functioning - Strength & Assets Inventory Strength & Assets Inventory: Cooperative DSM 5 DX - DSM 5 DSM 5 Diagnosis: Major Depressive Disorder, recurrent w/ psychotic features - Recommended/Plan of Treatment Treatment Recommendations and Plan of Treatment: Major Depressive Disorder, recurrent w/ psychotic features -Admit to psychiatry unit -Individual and group therapy -Restart Seroquel 200 mg PO HS, Remeron 30 mg PO HS, Lexapro 20 mg PO Daily -Medicine consult re: chronic conditions -Disposition planning -Nicotine patch Projected ELOS: 4-7 days Discharge Plan and Discharge Criteria: Discharge when psychiatrically stable - Smoking Cessation Smoking Cessation Initiated: Yes
[2017-09-13] MEDS ORDERED: Albuterol HFA 90 mcg/actuation (8 g) IH PRN (11:07)
--- NOTE | 2017-09-13 12:09 | CARD ---
APPROVED REPORT EKG Measurement Heart [id number] <Conclusion> Sinus rhythm with occasional premature ventricular complexes Possible Left atrial enlargement Left axis deviation Left bundle branch block Abnormal ECG
[2017-09-13 13:01] LABS: FOLATE 15.8 ng/mL
--- NOTE | 2017-09-14 10:40 | PCM.PYCHPN ---
Psychiatric Progress Note - Psychiatric Progress Note Patient seen today, length of contact: Patient evaluated, case discussed with team, chart reviewed, 35 min Patient Chief Complaint: "I'm okay" Problems Identified/Issues Discussed: Patient reports that his mood is starting to improve. He reports that he continues to have auditory hallucinations, this morning he heard his name being called. Denies VH/SI/HI. He continues to report depression but is more hopeful and goal oriented. No adverse effects to medications reported. Medication Change: No Medical Record Reviewed: Yes Consults ordered or reviewed: Medicine consult Mental Status Examination - Cognitive Function Orientation: Person, Place, Situation, Time Memory: Intact Attention: WNL Concentration: WNL Association: WNL Fund of Knowledge: WNL - Mood Mood: Depressed - Affect Affect: Constricted - Speech Speech: Appropriate - Formal Thought Process Formal Thought Process: Hallucinations Psychotic Thoughts and Behaviors: +AH - Suicidal Ideation Suicidal Ideation: No - Homicidal Ideation Homicidal Ideation: No Goal/Treatment Plan - Goal/Treatment Plan Need for Continued Stay: Remain at risks for inpatient hospitalization, Severe depression anxiety, Discharge may exacerbated symptoms, Severe functional impairment Progress Toward Problem(s) and Goals/Treatment Plan: Major Depressive Disorder, recurrent w/ psychotic features; patient needs continued hospitalization for treatment and stabilization -Individual and group therapy -Continue Seroquel 200 mg PO HS, Remeron 30 mg PO HS, Lexapro 20 mg PO Daily -Medicine consult appreciated -Disposition planning -Nicotine patch Estimated Date of D/C: 09/17/17 - Smoking Cessation Smoking Cessation Initiated: Yes
--- NOTE | 2017-09-15 10:57 | PCM.PYCHPN ---
Psychiatric Progress Note - Psychiatric Progress Note Patient seen today, length of contact: Patient evaluated, case discussed with team, chart reviewed, 35 min Patient Chief Complaint: "I'm okay" Problems Identified/Issues Discussed: Patient reports that his mood is improving. He denies current AH/VH/paranoia/ delusions. He denies feeling acutely anxious and is more goal oriented. His sleep and appetite is improving. No adverse effects to medications reported. Medication Change: No Medical Record Reviewed: Yes Consults ordered or reviewed: Medicine consult Mental Status Examination - Cognitive Function Orientation: Person, Place, Situation, Time Memory: Intact Attention: WNL Concentration: WNL Association: [facility] Fund of Knowledge: [facility] Decription of patient's judgement and insights: Good I/J - Mood Mood: Depressed - Affect Affect: Broad - Speech Speech: Appropriate - Formal Thought Process Formal Thought Process: No Impairment Psychotic Thoughts and Behaviors: No current AH, last heard his name being called yesterday - Suicidal Ideation Suicidal Ideation: No - Homicidal Ideation Homicidal Ideation: No Goal/Treatment Plan - Goal/Treatment Plan Need for Continued Stay: Remain at risks for inpatient hospitalization Progress Toward Problem(s) and Goals/Treatment Plan: Major Depressive Disorder, recurrent w/ psychotic features; patient is improving clinically and will likely be discharged tomorrow w/ outpatient follow -up -Individual and group therapy -Continue Seroquel 200 mg PO HS, Remeron 30 mg PO HS, Lexapro 20 mg PO Daily -Medicine consult appreciated -Disposition planning -Nicotine patch Estimated Date of D/C: 09/16/17 - Smoking Cessation Smoking Cessation Initiated: Yes
[2017-09-16 05:46] VITALS: BP 102/57; PULSE 83; RESP 19; TEMP 97.3
--- NOTE | 2017-09-16 08:53 | PCM.PYCHDC ---
Mental Status Examination - Mental Status Examination Orientation: Person, Place, Situation, Time Memory: Intact Mood: Neutral Affect: Broad Speech: Appropriate Attention: WNL Concentration: WNL Association: [facility]NL Fund of Knowledge: WNL Formal Thought Process: No Impairment Description of patient's judgement and insight: Good I/J Psychotic Thoughts and Behaviors: No AH/VH/paranoia/delusions Suicidal Ideation: No Current Homicidal Ideation?: No Discharge Summary - Discharge Note Reason for Hospitalization: HPI: 67 yo male w/ history of depression w/ psychotic features, presents with worsening depression and auditory hallucinations in the context of no longer having medications due to a lapse in his insurance. He denies current suicidal ideation/plan/intent. He reported that he last heard AH yesterday of a male talking to him Citizen [place] and reports that he has also had visual hallucinations of this man. +Poor sleep/appetite/energy/concentration. Denies current drug use. 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 While CW met with pt to conduct assessment, pt reported that he [facility] due to feeling anxious, depressed, and having SI as he does not have enough support systems in his life. Pt reported that he is financially unstable and he cannot even afford to refill his psychiatric medication due to running very low in funds. Pt stated that the last time he had his Lexapro 20mg and Remadon 45mg was about 3 days ago. Pt reported that sees a psychiatrist Dr. Hyatt and a therapist (Dave) at [facility], but they have not been able to assist him to refill his medication. Pt reported that he was having SI with no plan, but he knew he could hurt himself, if he did not come to the hospital tonight. Pt denied active HI, HP, or Intent. Pt reported that he was experiencing Auditory Hallucinations earlier today as pt stated, I heard the voice of Male, whom was telling that I was worthless and he was telling me that I was less than garbage." Pt admitted to using Alcohol, Coccaine, and Marijuana in the past; however, pt denied current used. 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 During assessment, pt was alert and oriented x3. Pt's mood is calm, affect is congruent. Pt's speech slow. Pt's thought process is clear of delusions and paranoia. Pt was not observed responding to internal or external stimuli. Pt did not present in a state of psychosis.Pt reported changes in his appetite and he described as poor. Pt also stated that he has not been sleeping much for the past 2 weeks. Medical Hx: Asthma, disc hernia, BPH PPHx: Several admissions in the past due to depression, psychosis and prior history of substance abuse (cocaine, MJ, ETOH). Suicide attempt by hanging in 2002. ALL: NKDA SHx: Lives w/ elderly man in an apartment in [place], from [place], denies current ETOH/drug. +5 cigarettes/day Consultations:: List each consultation separately and include: 1. Reason for request. 2. Findings. 3. Follow-up Consultations: Medicine consult Summary of Hospital Course include:: 1. Description of specific treatment plan utilized for patients during their course of treatmen. 2. Summarize the time- course for resolution of acute symptoms and/or regressed behaviors. 3. Describe issues identified and worked on during hospitalization. 4. Describe medication utilized. 5. Describe medical problems identified and treated. 6. Reassessment of suicide risk Summary of Hospital Course: Patient was admitted to the psychiatry unit. Individual and group therapy were provided. Patient was restabilized on Seroquel, Remeron and Lexapro. He denies current depression or psychosis and is psychiatrically stable for discharge. - Diagnosis (1) Severe recurrent major depression w/psychotic features, mood-congruent Current Visit: Yes Status: Acute - Final Diagnosis (DSM 5) Condition upon Discharge: STABLE DSM 5: Major Depressive Disorder w/ psychosis Disposition: HOME/ ROUTINE Follow-up Treatment Plan: Major Depressive Disorder, recurrent w/ psychotic features; patient is psychiatrically stable for discharge. -Individual and group therapy -Continue Seroquel 200 mg PO HS, Remeron 30 mg PO HS, Lexapro 20 mg PO Daily -Medicine consult appreciated -Disposition planning -Nicotine patch Prescriptions/Medication Reconciliation: Albuterol HFA [Ventolin HFA 90 mcg/actuation (8 g)] 2 puff IH [id number] PRN #1 inhaler PRN Reason: Shortness Of Breath Atorvastatin [Lipitor] 20 mg PO DAILY #30 tab Escitalopram [Lexapro] 20 mg PO DAILY #30 tab Mirtazapine [Remeron] 30 mg PO HS #30 tab QUEtiapine [SEROquel] 200 mg PO HS #30 tab Tamsulosin [Flomax] 0.4 mg PO DAILY #30 cap - Smoking Cessation Smoking Cessation Medication prescribed: Yes - Antipsychotic Medications Pt discharged on 2 or more routine antipsychotic medications: No
== END 2017-09-16 13:30 | disposition home or self-care (01) | DRG 430 ==
LOC: H.ER 19:43 → H.ERHOLD 09-13 01:25 → H.STEP 09-13 04:28
PROVIDERS: ADMIT Psychiatry & Neurology Psychiatry; ATTEND Psychiatry & Neurology Psychiatry
PROC: GZHZZZZ Group Psychotherapy (ICD-10-PCS; principal; 2017-09-13)
PROC: GZ58ZZZ Individual Psychotherapy, Cognitive-Behavioral (ICD-10-PCS; 2017-09-13)
PROC: 3E0234Z Introduction of Serum, Toxoid and Vaccine into Muscle, Percutaneous Approach (ICD-10-PCS; 2017-09-13)
DX: F33.3 Major depressive disorder, recurrent, severe with psychotic symptoms (principal); R45.851 Suicidal ideations; F41.0 Panic disorder [episodic paroxysmal anxiety]; N40.1 Benign prostatic hyperplasia with lower urinary tract symptoms; E78.5 Hyperlipidemia, unspecified; J45.909 Unspecified asthma, uncomplicated; F17.210 Nicotine dependence, cigarettes, uncomplicated; Z98.42 Cataract extraction status, left eye; Z23 Encounter for immunization

== ENCOUNTER 2017-12-17 13:42 | Emergency (ER) | payer MEDICAID, OTHER ==
[2017-12-17 13:43] VITALS: BMI 27.3
[2017-12-17 13:51] VITALS: BP 146/86; PULSE 78; RESP 20; TEMP 98.9; O2SAT 98
--- NOTE | 2017-12-17 14:29 | ED PDOC ---
HPI: Psych/Substance Abuse Time Seen by Provider: 12/17/17 14:27 Chief Complaint (Nursing): Psychiatric Evaluation Chief Complaint (Provider): crisis eval, anxiety History Per: Patient Additional Complaint(s): 67-year-old male with history of anxiety and depression presents to emergency department with increasing anxiety and ruminating thoughts ongoing for the past week. Patient states he is compliant with his psychiatric meds. He denies suicidal or homicidal ideation. Patient has also had cough and chest congestion for the past 2 days. He denies fever or chills. He states all pedal pump is not helping his symptoms. Past Medical History Reviewed: Historical Data, Nursing Documentation, Vital Signs Vital Signs: Last Vital Signs Temp 98.9 F 12/17/17 13:48 Pulse 78 12/17/17 13:48 Resp 20 12/17/17 13:48 BP 146/86 12/17/17 13:48 Pulse Ox 98 12/17/17 13:48 - Medical History PMH: Anxiety, Asthma, Benign Prostatic Hyperplasia, Depression, Schizophrenia - Surgical History Other surgeries: eye surgery - Family History Family History: States: No Known Family Hx - Living Arrangements Living Arrangements: With Family - Social History Current smoker - smoking cessation education provided: Yes Alcohol: None Drugs: Denies - Home Medications Home Medications: Ambulatory Orders Medication Instructions Recorded Albuterol HFA [Ventolin HFA 90 2 puff IH [id number] PRN #1 inhaler 09/15/17 mcg/actuation (8 g)] Atorvastatin [Lipitor] 20 mg PO DAILY #30 tab 09/15/17 Escitalopram [Lexapro] 20 mg PO DAILY #30 tab 09/15/17 Mirtazapine [Remeron] 30 mg PO HS #30 tab 09/15/17 QUEtiapine [SEROquel] 200 mg PO HS #30 tab 09/15/17 Tamsulosin [Flomax] 0.4 mg PO DAILY #30 cap 09/15/17 Albuterol HFA [Ventolin HFA 90 1 puff IH ASDIR #1 unit 12/17/17 mcg/actuation (8 g)] Methylprednisolone [Medrol Dose 4 mg PO ASDIR #21 mg 12/17/17 Pack (21 tabs)] - Allergies Allergies/Adverse Reactions: Allergies Allergy/AdvReac Type Severity Reaction Status Date / Time No Known Allergies Allergy Verified 12/17/17 13:47 Review of Systems ROS Statement: Except As Marked, All Systems Reviewed And Found Negative Constitutional: Negative for: Fever Cardiovascular: Negative for: Chest Pain Respiratory: Positive for: Cough Psych: Positive for: Anxiety, Depression. Negative for: Suicidal ideation Physical Exam - Reviewed Nursing Documentation Reviewed: Yes Vital Signs Reviewed: Yes - Physical Exam Appears: Positive for: Well, Non-toxic, No Acute Distress Skin: Negative for: Rash Eye Exam: Positive for: Normal appearance Cardiovascular/Chest: Positive for: Regular Rate, Rhythm Respiratory: Positive for: Normal Breath Sounds Gastrointestinal/Abdominal: Positive for: Soft. Negative for: Tenderness Back: Negative for: L CVA Tenderness, R CVA Tenderness Extremity: Positive for: Normal ROM Neurologic/Psych: Positive for: Alert, Oriented - Laboratory Results Result Diagrams: 12/17/17 17:18 12/17/17 17:18 - ECG Interpretation Of ECG: Normal sinus rhythm 66 bpm, left bundle branch block, unchanged from previous EKG in August 2017. O2 Sat by Pulse Oximetry: 98 Pulse Ox Interpretation: Normal - Other Rad CXR X-Ray: Interpreted by Me, Viewed By Me X-Ray Interpretation: no acute finding Medical Decision Making Medical Decision Makin67 year old male here for crisis eval, also with cough Plan: Flu swab CXR EKG CBC CMP BAL UDS UA Duoneb x 1 Crisis eval As per crisis counselor and psychiatrist front desk representative Dr. Crawley, patient does not meet criteria for psychiatric admission. She has psychiatrist and he will follow up with. Patient reports improvement to congestion after DuoNeb treatment. Prescription given for Ventolin inhaler and prednisone. Patient was advised to follow up with primary doctor in 2-3 days. Disposition - Clinical Impression Clinical Impression: Anxiety, Asthma - Patient ED Disposition Is Patient to be Admitted: No Counseled Patient/Family Regarding: Studies Performed, Diagnosis, Need For Followup, Rx Given - Disposition Referrals: [facility] [Outside] Disposition: Routine/Home Disposition Time: 18:36 Condition: STABLE Additional Instructions: Take prescription medications as directed. Follow up with primary care doctor and psychiatrist in 2-3 days. Prescriptions: Albuterol HFA [Ventolin HFA 90 mcg/actuation (8 g)] 1 puff IH ASDIR #1 unit Methylprednisolone [Medrol Dose Pack (21 tabs)] 4 mg PO ASDIR #21 mg Instructions: Asthma (ED), Anxiety (ED) Forms: [address] (Luxembourgish) Print Language: YAKUT Results - Lab Results Lab Results: 12/17/17 12/17/17 12/17/17 17:18 17:18 17:18 WBC 5.9 RBC 5.24 Hgb 14.8 Hct 44.3 MCV 84.5 MCH 28.3 MCHC 33.5 RDW 14.9 H Plt Count 207 MPV 9.0 Neut % (Auto) 53.5 Lymph % (Auto) 32.3 [place] % (Auto) 10.3 H Eos % (Auto) 2.5 Baso % (Auto) 1.4 Neut # (Auto) 3.2 Lymph # (Auto) 1.9 [place] # (Auto) 0.6 Eos # (Auto) 0.1 Baso # (Auto) 0.1 Sodium 146 Potassium 4.1 Chloride 102 Carbon Dioxide 31 H Anion Gap 17 BUN 24 H Creatinine 1.1 Est GFR ( Amer) > 60 Est GFR (Non-Af Amer) > 60 Random Glucose 92 Calcium 9.8 Total Bilirubin 0.6 AST 42 ALT 72 D Alkaline Phosphatase 42 Total Protein 8.0 Albumin 4.5 Globulin 3.5 Albumin/Globulin Ratio 1.3 Urine Color Urine Clarity Urine pH Ur Specific [place] Urine Protein Urine Glucose (UA) Urine Ketones Urine Blood Urine Nitrate Urine Bilirubin Urine Urobilinogen Ur Leukocyte Esterase Urine RBC (Auto) Urine Microscopic WBC Urine Opiates Screen Urine Methadone Screen Ur Barbiturates Screen Ur Phencyclidine Scrn Ur Amphetamines Screen U Benzodiazepines Scrn U Oth Cocaine Metabols U Cannabinoids Screen Alcohol, Quantitative < 10 Influenza Typ A,B (EIA) Negative for flu a/b 12/17/17 12/17/17 17:18 17:18 WBC RBC Hgb Hct MCV MCH MCHC RDW Plt Count MPV Neut % (Auto) Lymph % (Auto) [place] % (Auto) Eos % (Auto) Baso % (Auto) Neut # (Auto) Lymph # (Auto) [place] # (Auto) Eos # (Auto) Baso # (Auto) Sodium Potassium Chloride Carbon Dioxide Anion Gap BUN Creatinine Est GFR ( Amer) Est GFR (Non-Af Amer) Random Glucose Calcium Total Bilirubin AST ALT Alkaline Phosphatase Total Protein Albumin Globulin Albumin/Globulin Ratio Urine Color Yellow Urine Clarity Slighty-cloudy Urine pH 7.0 Ur Specific [place] 1.023 Urine Protein Negative Urine Glucose (UA) Neg Urine Ketones Negative Urine Blood Negative Urine Nitrate Negative Urine Bilirubin Negative Urine Urobilinogen 0.2-1.0 Ur Leukocyte Esterase Neg Urine RBC (Auto) 2 Urine Microscopic WBC < 1 Urine Opiates Screen Negative Urine Methadone Screen Negative Ur Barbiturates Screen Negative Ur Phencyclidine Scrn Negative Ur Amphetamines Screen Negative U Benzodiazepines Scrn Negative U Oth Cocaine Metabols Negative U Cannabinoids Screen Negative Alcohol, Quantitative Influenza Typ A,B (EIA)
[2017-12-17] MEDS ORDERED: Albuterol-Ipratrop 3 mg / 0.5 (3 ml) UD INH STA (15:15)
--- NOTE | 2017-12-17 16:57 | RAD ---
HISTORY: cough, clearance COMPARISON: This 09/12/2017 FINDINGS: LUNGS: No active pulmonary disease. PLEURA: No significant pleural effusion identified, no pneumothorax apparent. CARDIOVASCULAR: No radiographic findings to suggest acute or significant cardiovascular disease. OSSEOUS STRUCTURES: No significant abnormalities. VISUALIZED UPPER ABDOMEN: Normal. OTHER FINDINGS: None. IMPRESSION: No active disease. No significant interval change compared to the prior examination(s).
[2017-12-17] MEDS ORDERED: Albuterol-Ipratrop 3 mg / 0.5 (3 ml) UD ONE (17:17)
[2017-12-17 17:27] LABS: URINE BILIRUBIN NEGATIVE (NEGATIVE); URINE BLOOD NEGATIVE (NEGATIVE); URINE CLARITY SLIGHTY-CLOUDY (Clear); URINE COLOR YELLOW (YELLOW); URINE GLUCOSE (UA) NEG (Normal); URINE LEUKOCYTE ESTERASE NEG Leu/uL (Negative); URINE NITRATE NEGATIVE (NEGATIVE); URINE PROTEIN NEGATIVE (NEGATIVE); URINE UROBILINOGEN 0.2-1.0 mg/dL (0.2-1.0)
[2017-12-17 17:33] LABS: BASO # 0.1 K/uL (0.0-0.2); BASO % 1.4 % (0.0-2.0); EOS # 0.1 K/uL (0.0-0.7); EOS % 2.5 % (0.0-4.0); HEMOGLOBIN 14.8 g/dL (12.0-18.0); LYMPH # 1.9 K/uL (1.0-4.3); LYMPH % 32.3 % (20.0-40.0); MEAN CELL VOLUME 84.5 fl (80.0-94.0); MEAN CORPUSCULAR HEMOGLOBIN 28.3 pg (27.0-31.0); MEAN CORPUSCULAR HGB CONC 33.5 g/dL (33.0-37.0); MONO # 0.6 K/uL (0.0-0.8); MONO % 10.3 % (0.0-10.0); NEUT # 3.2 K/uL (1.8-7.0); NEUT % 53.5 % (50.0-75.0); NRBC % 0.2 % (0.0-0.0); RBC 5.24 Mil/uL (4.40-5.90); RED CELL DISTRIBUTION WIDTH 14.9 % (11.5-14.5); WHITE BLOOD COUNT 5.9 K/uL (4.8-10.8)
[2017-12-17 17:41] LABS: ALB/GLOB RATIO 1.3 (1.0-2.1); ALBUMIN 4.5 g/dL (3.5-5.0); ALT/SGPT 72 U/L (21-72); AST/SGOT 42 U/L (17-59); BLOOD UREA NITROGEN 24 mg/dl (9-20); CALCIUM 9.8 mg/dL (8.4-10.2); GFR AFRICAN-AMERICAN > 60; GFR NON-AFRICAN AMERICAN > 60
[2017-12-17 17:42] LABS: BARBITURATES, UR NEGATIVE (NEGATIVE); BENZODIAZEPINES, UR NEGATIVE (NEGATIVE); OPIATES, UR NEGATIVE (NEGATIVE); PHENCYCLIDINE, UR NEGATIVE (NEGATIVE)
--- NOTE | 2017-12-18 09:35 | CARD ---
APPROVED REPORT EKG Measurement Heart [id number] <Conclusion> Normal sinus rhythm Possible Left atrial enlargement Left axis deviation Left bundle branch block Abnormal ECG
== END 2017-12-17 19:38 | disposition home or self-care (01) ==
LOC: H.ER 13:42
DX: J45.909 Unspecified asthma, uncomplicated (principal); F41.9 Anxiety disorder, unspecified; F32.9 Major depressive disorder, single episode, unspecified; F17.200 Nicotine dependence, unspecified, uncomplicated; I44.7 Left bundle-branch block, unspecified

== ENCOUNTER 2018-02-24 14:59 | Emergency (ER) | payer MEDICAID, OTHER ==
[2018-02-24 14:59] VITALS: BMI 27.3
[2018-02-24] MEDS ORDERED: Albuterol-Ipratrop 3 mg / 0.5 (3 ml) UD INH STA (16:00)
[2018-02-24] MEDS ORDERED: Albuterol-Ipratrop 3 mg / 0.5 (3 ml) UD ONE (16:12)
--- NOTE | 2018-02-24 16:54 | RAD ---
HISTORY: cough, feverish at home COMPARISON: 12/17/2017 TECHNIQUE: Chest PA and lateral FINDINGS: LUNGS: No active pulmonary disease. PLEURA: No significant pleural effusion identified. No pneumothorax apparent. CARDIOVASCULAR: No radiographic findings to suggest acute or significant cardiovascular disease. OSSEOUS STRUCTURES: No significant abnormalities. VISUALIZED UPPER ABDOMEN: Normal. OTHER FINDINGS: None. IMPRESSION: No active disease. No significant interval change compared to the prior examination(s).
--- NOTE | 2018-02-24 17:07 | ED PDOC ---
HPI: CCC, URI, Sore Throat Time Seen by Provider: 02/24/18 15:25 Chief Complaint (Nursing): Flu-like Symptoms Chief Complaint (Provider): Cough x 3 days History Per: Patient History/Exam Limitations: no limitations Have you had recent travel within the past 21 days to any of the following countries: [place], [place], [place] or [place]?: No Onset/Duration Of Symptoms: Days Current Symptoms Are (Timing): Still Present Additional Complaint(s): 67 yo male with history of asthma presents with cough x 3 days and tactile fever. Pt states that he did not take his temperature. Pt states that he was talking several OTC medications which have not been helping. Pt reports some phlegm, white and veloz. Past Medical History Reviewed: Historical Data, Nursing Documentation, Vital Signs Vital Signs: Last Vital Signs Temp 98.1 F 02/24/18 15:04 Pulse 101 H 02/24/18 15:04 Resp 17 02/24/18 15:04 BP 121/78 02/24/18 15:04 Pulse Ox 96 02/24/18 15:04 - Medical History PMH: Anxiety, Asthma, Benign Prostatic Hyperplasia, Depression, Schizophrenia Denies: Diabetes, Hepatitis, HIV, HTN, Chronic Kidney Disease, Seizures, Sexually Transmitted Disease - Surgical History Surgical History: No Surg Hx - Family History Family History: States: Unknown Family Hx - Living Arrangements Living Arrangements: With Family - Social History Current smoker - smoking cessation education provided: No - Immunization History Hx Tetanus Toxoid Vaccination: No Hx Influenza Vaccination: No Hx Pneumococcal Vaccination: No - Home Medications Home Medications: Ambulatory Orders Medication Instructions Recorded Albuterol HFA [Ventolin HFA 90 2 puff IH [id number] PRN #1 inhaler 09/15/17 mcg/actuation (8 g)] Atorvastatin [Lipitor] 20 mg PO DAILY #30 tab 09/15/17 Escitalopram [Lexapro] 20 mg PO DAILY #30 tab 09/15/17 Mirtazapine [Remeron] 30 mg PO HS #30 tab 09/15/17 QUEtiapine [SEROquel] 200 mg PO HS #30 tab 09/15/17 Tamsulosin [Flomax] 0.4 mg PO DAILY #30 cap 09/15/17 Albuterol HFA [Ventolin HFA 90 1 puff IH ASDIR #1 unit 12/17/17 mcg/actuation (8 g)] Methylprednisolone [Medrol Dose 4 mg PO ASDIR #21 mg 12/17/17 Pack (21 tabs)] Amoxicillin/Clavulanate [Augmentin 1 tab PO BID #20 tab 02/24/18 875 MG-125 MG] Promethazine HCl/Codeine 10 ml PO Q8H PRN #150 ml 02/24/18 [Prometh-Codein 6.25-10 mg/5 ml] - Allergies Allergies/Adverse Reactions: Allergies Allergy/AdvReac Type Severity Reaction Status Date / Time No Known Allergies Allergy Verified 12/17/17 13:47 Review of Systems ROS Statement: Except As Marked, All Systems Reviewed And Found Negative Constitutional: Negative for: Fever, Chills Respiratory: Positive for: Cough. Negative for: Shortness of Breath Gastrointestinal: Negative for: Abdominal Pain Physical Exam - Reviewed Nursing Documentation Reviewed: Yes Vital Signs Reviewed: Yes - Physical Exam Appears: Positive for: Well, Non-toxic, No Acute Distress Head Exam: Positive for: ATRAUMATIC, NORMAL INSPECTION, NORMOCEPHALIC Skin: Positive for: Normal Color, Warm, DRY Eye Exam: Positive for: Normal appearance ENT: Positive for: Normal ENT Inspection Neck: Positive for: Normal, Painless ROM Cardiovascular/Chest: Positive for: Regular Rate, Rhythm Respiratory: Positive for: Normal Breath Sounds. Negative for: Accessory Muscle Use, Respiratory Distress Gastrointestinal/Abdominal: Positive for: Normal Exam, Soft Back: Positive for: Normal Inspection Extremity: Positive for: Normal ROM Neurologic/Psych: Positive for: Alert, Oriented - ECG O2 Sat by Pulse Oximetry: 96 Medical Decision Making Medical Decision Making: CXR without acute abnormalities Disposition - Clinical Impression Clinical Impression: URI (upper respiratory infection) - Patient ED Disposition Is Patient to be Admitted: No Counseled Patient/Family Regarding: Diagnosis, Need For Followup, Rx Given - Disposition Referrals: Provider TBD, [Primary Care Provider] - Disposition: Routine/Home Disposition Time: 17:08 Condition: GOOD Prescriptions: Amoxicillin/Clavulanate [Augmentin 875 MG-125 MG] 1 tab PO BID #20 tab Promethazine HCl/Codeine [Prometh-Codein 6.25-10 mg/5 ml] 10 ml PO Q8H PRN #150 ml PRN Reason: Cough Instructions: Bacterial Upper Respiratory Infection, Adult
[2018-02-24 17:19] VITALS: BP 136/82; PULSE 86; RESP 18; TEMP 98; O2SAT 97
== END 2018-02-24 17:20 | disposition home or self-care (01) ==
LOC: H.ER 14:59 → SUPCPDRO 14:59 → H.ER 17:20
DX: J06.9 Acute upper respiratory infection, unspecified (principal); F20.9 Schizophrenia, unspecified; F32.9 Major depressive disorder, single episode, unspecified; F41.9 Anxiety disorder, unspecified; J45.909 Unspecified asthma, uncomplicated; N40.0 Benign prostatic hyperplasia without lower urinary tract symptoms

== ENCOUNTER 2018-03-01 21:32 | Emergency (ER) | payer MEDICAID, OTHER ==
[2018-03-01 21:32] VITALS: BMI 27.3
[2018-03-01 21:39] VITALS: BP 132/80; PULSE 98; RESP 18; TEMP 97.5; O2SAT 99
[2018-03-01] MEDS ORDERED: Albuterol-Ipratrop 3 mg / 0.5 (3 ml) UD INH STA ×2 (22:35→22:56)
--- NOTE | 2018-03-01 22:38 | ED PDOC ---
HPI: CCC, URI, Sore Throat Time Seen by Provider: 03/01/18 22:02 Chief Complaint (Nursing): Cough, Cold, Congestion Chief Complaint (Provider): Cough, feverish x 1 week History Per: Patient History/Exam Limitations: no limitations Onset/Duration Of Symptoms: Days Current Symptoms Are (Timing): Still Present Location Of Pain: None Sick Contacts (Context): None Associated Symptoms: Fever (Tactile ), Sore Throat, Cough, Sputum Ear Symptoms: Bilateral: None Additional Complaint(s): 67 yo male returns to Er for evaluation for continued cough. PT was seen in ER last week and diagnosed with URI. Pt placed on Augmentin and cough medication. Pt. reports no improvement. Pt. states he made an appointment with PCP but the first appointment was next month. Past Medical History Reviewed: Historical Data, Nursing Documentation, Vital Signs Vital Signs: Last Vital Signs Temp 97.5 F L 03/01/18 21:37 Pulse 98 H 03/01/18 21:37 Resp 18 03/01/18 21:37 BP 132/80 03/01/18 21:37 Pulse Ox 99 03/02/18 00:00 - Medical History PMH: Anxiety, Asthma, Benign Prostatic Hyperplasia, Depression, Schizophrenia Denies: Diabetes, Hepatitis, HIV, HTN, Chronic Kidney Disease, Seizures, Sexually Transmitted Disease - Surgical History Surgical History: No Surg Hx - Family History Family History: States: Unknown Family Hx - Living Arrangements Living Arrangements: With Family - Social History Current smoker - smoking cessation education provided: No - Immunization History Hx Tetanus Toxoid Vaccination: No Hx Influenza Vaccination: No Hx Pneumococcal Vaccination: No - Home Medications Home Medications: Ambulatory Orders Medication Instructions Recorded Albuterol HFA [Ventolin HFA 90 2 puff IH [id number] PRN #1 inhaler 09/15/17 mcg/actuation (8 g)] Atorvastatin [Lipitor] 20 mg PO DAILY #30 tab 09/15/17 Escitalopram [Lexapro] 20 mg PO DAILY #30 tab 09/15/17 Mirtazapine [Remeron] 30 mg PO HS #30 tab 09/15/17 QUEtiapine [SEROquel] 200 mg PO HS #30 tab 09/15/17 Tamsulosin [Flomax] 0.4 mg PO DAILY #30 cap 09/15/17 Albuterol HFA [Ventolin HFA 90 1 puff IH ASDIR #1 unit 12/17/17 mcg/actuation (8 g)] Methylprednisolone [Medrol Dose 4 mg PO ASDIR #21 mg 12/17/17 Pack (21 tabs)] Amoxicillin/Clavulanate [Augmentin 1 tab PO BID #20 tab 02/24/18 875 MG-125 MG] Promethazine HCl/Codeine 10 ml PO Q8H PRN #150 ml 02/24/18 [Prometh-Codein 6.25-10 mg/5 ml] Albuterol HFA [Ventolin HFA 90 1 puff IH BID PRN #1 unit 03/01/18 mcg/actuation (8 g)] Azithromycin [Zithromax] 250 mg PO DAILY #6 tab 03/01/18 predniSONE [predniSONE Tab] 20 mg PO DAILY #12 tab 03/01/18 levoFLOXacin [Levaquin] 500 mg PO DAILY #7 tab 03/02/18 - Allergies Allergies/Adverse Reactions: Allergies Allergy/AdvReac Type Severity Reaction Status Date / Time No Known Allergies Allergy Verified 12/17/17 13:47 Review of Systems ROS Statement: Except As Marked, All Systems Reviewed And Found Negative Constitutional: Positive for: Fever, Chills, Sweats Respiratory: Positive for: Cough, Shortness of Breath. Negative for: SOB with Exertion Physical Exam - Reviewed Nursing Documentation Reviewed: Yes Vital Signs Reviewed: Yes - Physical Exam Appears: Positive for: Well, Non-toxic, No Acute Distress Head Exam: Positive for: ATRAUMATIC, NORMAL INSPECTION, NORMOCEPHALIC Skin: Positive for: Normal Color, Warm, DRY Eye Exam: Positive for: Normal appearance ENT: Positive for: Normal ENT Inspection Neck: Positive for: Normal, Painless ROM Cardiovascular/Chest: Positive for: Regular Rate, Rhythm Respiratory: Positive for: Wheezing. Negative for: Accessory Muscle Use, Respiratory Distress Gastrointestinal/Abdominal: Positive for: Normal Exam, Soft Back: Positive for: Normal Inspection Extremity: Positive for: Normal ROM Neurologic/Psych: Positive for: Alert, Oriented - Laboratory Results Result Diagrams: 03/01/18 22:25 03/01/18 22:25 - ECG O2 Sat by Pulse Oximetry: 99 Pulse Ox Interpretation: Normal Medical Decision Making Medical Decision Making: PT endorsed pending labs and re-evaluation at 0000. Disposition - Clinical Impression Clinical Impression: Cough - Patient ED Disposition Is Patient to be Admitted: No - Disposition Disposition: Routine/Home Disposition Time: 00:08 Condition: STABLE Prescriptions: Albuterol HFA [Ventolin HFA 90 mcg/actuation (8 g)] 1 puff IH BID PRN #1 unit PRN Reason: SOB Azithromycin [Zithromax] 250 mg PO DAILY #6 tab levoFLOXacin [Levaquin] 500 mg PO DAILY #7 tab predniSONE [predniSONE Tab] 20 mg PO DAILY #12 tab Instructions: Cough in Adults Forms: [employer] ([place]an)
[2018-03-01] MEDS ORDERED: Albuterol-Ipratrop 3 mg / 0.5 (3 ml) UD ONE (23:02)
[2018-03-01 23:12] LABS: BASO % 0.3 % (0.0-2.0); EOS # 0.5 K/uL (0.0-0.7); EOS % 10.1 % (0.0-4.0); HEMOGLOBIN 14.7 g/dL (12.0-18.0); LYMPH # 1.9 K/uL (1.0-4.3); LYMPH % 34.9 % (20.0-40.0); MEAN CORPUSCULAR HEMOGLOBIN 28.4 pg (27.0-31.0); MEAN PLATELET VOLUME 9.1 fl (7.2-11.7); MONO # 0.6 K/uL (0.0-0.8); NEUT # 2.3 K/uL (1.8-7.0); NEUT % 43.7 % (50.0-75.0); NRBC % 0.1 % (0.0-0.0); RBC 5.17 Mil/uL (4.40-5.90); RED CELL DISTRIBUTION WIDTH 15.4 % (11.5-14.5); WHITE BLOOD COUNT 5.4 K/uL (4.8-10.8)
[2018-03-02 01:02] LABS: ALB/GLOB RATIO 1.1 (1.0-2.1); ALBUMIN 4.1 g/dL (3.5-5.0); ALT/SGPT 51 U/L (21-72); AST/SGOT 33 U/L (17-59); BLOOD UREA NITROGEN 18 mg/dl (9-20); CALCIUM 9.4 mg/dL (8.4-10.2); GFR AFRICAN-AMERICAN > 60; GFR NON-AFRICAN AMERICAN > 60
--- NOTE | 2018-03-02 09:50 | RAD ---
HISTORY: cough COMPARISON: Chest radiograph dated 02/24/2018. TECHNIQUE: Chest PA and lateral FINDINGS: LUNGS: No active pulmonary disease. PLEURA: No significant pleural effusion identified. No pneumothorax apparent. CARDIOVASCULAR: Cardiomediastinal silhouette stably prominent. OSSEOUS STRUCTURES: Unchanged. VISUALIZED UPPER ABDOMEN: Normal. OTHER FINDINGS: None. IMPRESSION: No active disease.
== END 2018-03-02 00:10 | disposition home or self-care (01) ==
LOC: H.ER 21:32
DX: R05 Cough (principal); Z86.59 Personal history of other mental and behavioral disorders; J45.909 Unspecified asthma, uncomplicated
CPT/HCPCS: 71046; 80053; 85025; 87040; 99283; J2930

== ENCOUNTER 2018-04-01 12:21 | Emergency (ER) | payer MEDICAID, SELFPAY ==
[2018-04-01 12:26] VITALS: BMI 29.6
[2018-04-01] MEDS ORDERED: Albuterol-Ipratrop 3 mg / 0.5 (3 ml) UD INH STA ×2 (12:47→12:48)
[2018-04-01] MEDS ORDERED: Albuterol-Ipratrop 3 mg / 0.5 (3 ml) UD ONE ×2 (13:00→15:06)
[2018-04-01 13:12] LABS: BASO # 0.1 K/uL (0.0-0.2); BASO % 2.7 % (0.0-2.0); EOS # 0.7 K/uL (0.0-0.7); EOS % 18.6 % (0.0-4.0); HEMOGLOBIN 12.3 g/dL (12.0-18.0); LYMPH # 1.4 K/uL (1.0-4.3); MEAN CELL VOLUME 87.2 fl (80.0-94.0); MEAN CORPUSCULAR HEMOGLOBIN 28.7 pg (27.0-31.0); MEAN CORPUSCULAR HGB CONC 32.9 g/dL (33.0-37.0); MEAN PLATELET VOLUME 9.2 fl (7.2-11.7); MONO # 0.4 K/uL (0.0-0.8); MONO % 11.3 % (0.0-10.0); NEUT # 1.1 K/uL (1.8-7.0); NEUT % 29.4 % (50.0-75.0); RBC 4.31 Mil/uL (4.40-5.90); RED CELL DISTRIBUTION WIDTH 15.2 % (11.5-14.5); WHITE BLOOD COUNT 3.8 K/uL (4.8-10.8)
[2018-04-01 13:31] LABS: ALB/GLOB RATIO 1.2 (1.0-2.1); ALBUMIN 3.7 g/dL (3.5-5.0); ALT/SGPT 52 U/L (21-72); AST/SGOT 32 U/L (17-59); BLOOD UREA NITROGEN 16 mg/dl (9-20); CALCIUM 8.6 mg/dL (8.4-10.2); GFR AFRICAN-AMERICAN > 60; GFR NON-AFRICAN AMERICAN > 60
--- NOTE | 2018-04-01 14:36 | ED PDOC ---
HPI: SOB/CHF/COPD Time Seen by Provider: 04/01/18 12:37 Chief Complaint (Nursing): Shortness Of Breath Chief Complaint (Provider): SOB - Today; Hx asthma History Per: Patient History/Exam Limitations: no limitations Onset/Duration Of Symptoms: Hrs Current Symptoms Are (Timing): Still Present Context: Denies pain Exacerbating Factor(s): Coughing Current Respiratory Medications: None Additional Complaint(s): 68 yo male with history of asthma presents with SOB. Pt states he was at the doctors office today to make an appointment for a sheet music salesperson which he made for next wednesday (3 days). Pt states he does not have a machine at [facility] so when he felt SOB he came to the ER. Past Medical History Reviewed: Historical Data, Nursing Documentation, Vital Signs Vital Signs: Last Vital Signs Temp 98.5 F 04/01/18 12:26 Pulse 85 04/01/18 12:26 Resp 18 04/01/18 12:26 BP 119/70 04/01/18 12:26 Pulse Ox 96 04/01/18 14:44 - Medical History PMH: Anxiety, Asthma, Benign Prostatic Hyperplasia, Depression, Schizophrenia Denies: Diabetes, Hepatitis, HIV, HTN, Chronic Kidney Disease, Seizures, Sexually Transmitted Disease - Surgical History Surgical History: No Surg Hx - Family History Family History: States: Unknown Family Hx - Living Arrangements Living Arrangements: With Family - Social History Current smoker - smoking cessation education provided: No Alcohol: None Drugs: Denies - Immunization History Hx Tetanus Toxoid Vaccination: No Hx Influenza Vaccination: No Hx Pneumococcal Vaccination: No - Home Medications Home Medications: Ambulatory Orders Medication Instructions Recorded Atorvastatin [Lipitor] 20 mg PO DAILY #30 tab 09/15/17 Escitalopram [Lexapro] 20 mg PO DAILY #30 tab 09/15/17 Mirtazapine [Remeron] 30 mg PO HS #30 tab 09/15/17 QUEtiapine [SEROquel] 200 mg PO HS #30 tab 09/15/17 Tamsulosin [Flomax] 0.4 mg PO DAILY #30 cap 09/15/17 Albuterol HFA [Ventolin HFA 90 1 puff IH BID PRN #1 unit 03/01/18 mcg/actuation (8 g)] - Allergies Allergies/Adverse Reactions: Allergies Allergy/AdvReac Type Severity Reaction Status Date / Time No Known Allergies Allergy Verified 12/17/17 13:47 Review of Systems ROS Statement: Except As Marked, All Systems Reviewed And Found Negative Constitutional: Negative for: Fever, Chills Cardiovascular: Negative for: Chest Pain, Palpitations Respiratory: Positive for: Cough, Shortness of Breath, SOB with Exertion, Wheezing. Negative for: Pleuritic Pain, Sputum Neurological: Negative for: Weakness, Numbness Physical Exam - Reviewed Nursing Documentation Reviewed: Yes Vital Signs Reviewed: Yes - Physical Exam Appears: Positive for: Well, Non-toxic, No Acute Distress Head Exam: Positive for: ATRAUMATIC, NORMAL INSPECTION, NORMOCEPHALIC Skin: Positive for: Normal Color, Warm, DRY Eye Exam: Positive for: Normal appearance ENT: Positive for: Normal ENT Inspection Neck: Positive for: Normal, Painless ROM Cardiovascular/Chest: Positive for: Regular Rate, Rhythm Respiratory: Positive for: Wheezing (Diffuse ). Negative for: Decreased Breath Sounds, Respiratory Distress Back: Positive for: Normal Inspection Extremity: Positive for: Normal ROM Neurologic/Psych: Positive for: Alert, Oriented - Laboratory Results Result Diagrams: 04/01/18 12:50 04/01/18 12:50 - ECG O2 Sat by Pulse Oximetry: 96 Medical Decision Making Medical Decision Makin - PT does not want to wait for CXR. Pt states he is feeling better and wants to leave. Disposition - Clinical Impression Clinical Impression: Asthma - Patient ED Disposition Is Patient to be Admitted: No - Disposition Disposition: Against Medical Advice Disposition Time: 15:12 Condition: STABLE Instructions: Asthma in Adults Forms: [employer] (Estonian)
[2018-04-01 16:12] VITALS: BP 120/80; PULSE 84; RESP 22; TEMP 98.7; O2SAT 98
== END 2018-04-01 16:12 | disposition home or self-care (01) ==
LOC: H.ER 12:21
DX: J45.909 Unspecified asthma, uncomplicated (principal); F20.9 Schizophrenia, unspecified; F32.9 Major depressive disorder, single episode, unspecified; F41.9 Anxiety disorder, unspecified; N40.0 Benign prostatic hyperplasia without lower urinary tract symptoms
CPT/HCPCS: 80053; 84484; 85025; 94640; 96374; 99283; J2930

== ENCOUNTER 2018-07-25 14:35 | Inpatient (IN) | payer MEDICAID ==
[2018-07-25 14:37] VITALS: BMI 29.6
--- NOTE | 2018-07-25 15:18 | ED PDOC ---
HPI: Psych/Substance Abuse Time Seen by Provider: 07/25/18 14:42 Chief Complaint (Nursing): Psychiatric Evaluation Chief Complaint (Provider): Psychiatric Evaluation History Per: Patient History/Exam Limitations: no limitations Onset/Duration Of Symptoms: Days (x4) Current Symptoms Are (Timing): Still Present Associated Symptoms: Anxiety, Depression, Suicidal Thoughts Involuntary Hold By: None Additional Complaint(s): Pool Amos, a 68 year old male with past medical history of depression, anxiety, schizophrenia, insomnia and asthma, presents to the emergency department via EMS for a psychiatric evaluation. Patient states he has had overwhelming depression since Wednesday (4 days ago) associated with suicidal and homicidal ideation at onset but denies any currently. He states he is having issues at home with his in-laws because he is [place] and they are [place]. He also reports hallucinating a black man who is yelling at him that he is full of st and to fk off. Patient takes lexapro, xanax, and seroquel all of which he states being compliant with. He does not have any physical complaints at this time. PMD: could not recall Past Medical History Reviewed: Historical Data, Nursing Documentation, Vital Signs Vital Signs: Last Vital Signs Temp 98.1 F 07/25/18 14:42 Pulse 95 H 07/25/18 14:42 Resp 18 07/25/18 14:42 BP 124/78 07/25/18 14:42 Pulse Ox 97 07/25/18 14:42 - Medical History PMH: Anxiety, Asthma, Benign Prostatic Hyperplasia, Depression, Schizophrenia Other PMH: insomnia - Surgical History Surgical History: No Surg Hx - Family History Family History: States: Unknown Family Hx - Social History Current smoker - smoking cessation education provided: Yes (5 cigarettes per day ) Alcohol: None Drugs: Denies - Home Medications Home Medications: Ambulatory Orders Medication Instructions Recorded Albuterol HFA [Ventolin HFA 90 1 puff IH BID PRN #1 unit 03/01/18 mcg/actuation (8 g)] Alprazolam [Xanax] 1 tab PO HS 07/25/18 Escitalopram [Lexapro] 20 mg PO HS 07/25/18 Fluticasone/Salmeterol 1 inh BID PRN 07/25/18 [Fluticasone-Salmeterol 55-14] QUEtiapine [SEROquel] 100 mg PO HS 07/25/18 Tiotropium [Spiriva] 1 inh DAILY 07/25/18 Zolpidem Tartrate [Zolpidem 1 tab PO HS 07/25/18 Tartrate] - Allergies Allergies/Adverse Reactions: Allergies Allergy/AdvReac Type Severity Reaction Status Date / Time No Known Allergies Allergy Verified 07/25/18 14:42 Review of Systems ROS Statement: Except As Marked, All Systems Reviewed And Found Negative Psych: Positive for: Depression, Suicidal ideation (and homicidal ideations 3 days ago, none currently) Physical Exam - Reviewed Nursing Documentation Reviewed: Yes Vital Signs Reviewed: Yes - Physical Exam Comments: GENERAL APPEARANCE: Patient is awake, alert, oriented x 3; emotional and tearful. SKIN: Warm, dry; (-) cyanosis ENMT: Mucous membranes moist. Airway patent: (-) stridor. NECK: Supple, FROM HEART AND CARDIOVASCULAR: (-) irregularity CHEST AND RESPIRATORY: (-) rales, (-) rhonchi, (-) wheezes; breath sounds equal. Respirations even and nonlabored, speaking in full sentences. ABDOMEN: Soft, (-) distention, (-) tenderness, (-) guarding. NEURO AND PSYCH: Mental status as above. Pupils equal and reactive; EOMI; (-) facial asymmetry. Gait: Steady. Speech: clear. - Laboratory Results Result Diagrams: 07/25/18 16:19 07/25/18 16:19 - ECG O2 Sat by Pulse Oximetry: 97 (RA) Pulse Ox Interpretation: Normal Medical Decision Making Medical Decision Making: Time: 14:40 Impression: psychiatric evaluation, depression Initial Plan: --Crisis evaluation --Re-evaluation 1545 Per crisis evaluation patient to be admitted for depression, per Dr Umana. CBC, CMP, Utox, U/A, CXR, EKG, serum alcohol ordered. 1620 NSR @ 74bpm (-) ST elevation, QTc 497 (+) LAD 1725 HISTORY: psych admission COMPARISON: Chest x-ray performed 03/01/18 TECHNIQUE: Chest, one view. FINDINGS: Examination limited by habitus. LUNGS: Hypo inflation. Mild pulmonary venous congestion. No focal consolidation. Please note that chest x-ray has limited sensitivity for the detection of pulmonary masses. PLEURA: No significant pleural effusion identified. No definite pneumothorax . CARDIOVASCULAR: Borderline cardiomegaly. OSSEOUS STRUCTURES: Degenerative changes of the spine. VISUALIZED UPPER ABDOMEN: Unremarkable. OTHER FINDINGS: None. IMPRESSION: Hypoinflation. Borderline cardiomegaly. 1730 Labs reviewed and grossly unremarkable. U/A with no evidence of UTI. Utox: (+) benzo Serum alcohol <10. Patient is medically stable for psychiatric admission. Arrangements made for admission at this time. Patient agreeable to admission. Vitals stable. Scribe Attestation: Documented by Liz Retana, acting as a scribe for Doreen Lara PA-C. Provider Scribe Attestation: All medical record entries made by the Scribe were at my direction and personally dictated by me. I have reviewed the chart and agree that the record accurately reflects my personal performance of the history, physical exam, medical decision making, and the department course for this patient. I have also personally directed, reviewed, and agree with the discharge instructions and disposition. Disposition - Clinical Impression Clinical Impression: Depression - Patient ED Disposition Is Patient to be Admitted: Yes Discussed With : Joslyn Umana Doctor Will See Patient In The: ED Counseled Patient/Family Regarding: Studies Performed, Diagnosis - Disposition Disposition Time: 17:31 Condition: FAIR - Pt Status Changed To: Hospital Disposition Of: Inpatient - Admit Certification Admit to Inpatient:: After my assessment, the patient will require hospitalization for at least two midnights. This is because of the severity of symptoms shown, intensity of services needed, and/or the medical risk in this patient being treated as an outpatient. - POA Present On Arrival: None Results - Lab Results Lab Results: 07/25/18 07/25/18 07/25/18 16:19 16:19 16:19 WBC 6.1 D RBC 5.41 Hgb 15.5 D Hct 46.4 MCV 85.7 MCH 28.6 MCHC 33.4 RDW 13.6 Plt Count 223 MPV 8.8 Neut % (Auto) 58.9 Lymph % (Auto) 28.5 Gentry % (Auto) 8.4 Eos % (Auto) 2.7 Baso % (Auto) 1.5 Neut # (Auto) 3.6 Lymph # (Auto) 1.7 Gentry # (Auto) 0.5 Eos # (Auto) 0.2 Baso # (Auto) 0.1 Sodium Potassium Chloride Carbon Dioxide Anion Gap BUN Creatinine Est GFR ( Amer) Est GFR (Non-Af Amer) Random Glucose Calcium Total Bilirubin AST ALT Alkaline Phosphatase Total Protein Albumin Globulin Albumin/Globulin Ratio Urine Color Yellow Urine Clarity Slighty-cloudy Urine pH 6.0 Ur Specific [place] 1.018 Urine Protein Negative Urine Glucose (UA) Neg Urine Ketones Negative Urine Blood Negative Urine Nitrate Negative Urine Bilirubin Negative Urine Urobilinogen 0.2-1.0 Ur Leukocyte Esterase Neg Urine RBC (Auto) 4 H Urine Microscopic WBC 1 Urine Opiates Screen Negative Urine Methadone Screen Negative Ur Barbiturates Screen Negative Ur Phencyclidine Scrn Negative Ur Amphetamines Screen Negative U Benzodiazepines Scrn Positive U Oth Cocaine Metabols Negative U Cannabinoids Screen Negative Alcohol, Quantitative 07/25/18 16:19 WBC RBC Hgb Hct MCV MCH MCHC RDW Plt Count MPV Neut % (Auto) Lymph % (Auto) Gentry % (Auto) Eos % (Auto) Baso % (Auto) Neut # (Auto) Lymph # (Auto) Gentry # (Auto) Eos # (Auto) Baso # (Auto) Sodium 139 Potassium 4.2 Chloride 104 Carbon Dioxide 28 Anion Gap 11 BUN 14 Creatinine 0.9 Est GFR ( Amer) > 60 Est GFR (Non-Af Amer) > 60 Random Glucose 91 Calcium 10.1 Total Bilirubin 0.4 AST 28 ALT 38 Alkaline Phosphatase 47 Total Protein 7.8 Albumin 4.5 Globulin 3.3 Albumin/Globulin Ratio 1.3 Urine Color Urine Clarity Urine pH Ur Specific [place] Urine Protein Urine Glucose (UA) Urine Ketones Urine Blood Urine Nitrate Urine Bilirubin Urine Urobilinogen Ur Leukocyte Esterase Urine RBC (Auto) Urine Microscopic WBC Urine Opiates Screen Urine Methadone Screen Ur Barbiturates Screen Ur Phencyclidine Scrn Ur Amphetamines Screen U Benzodiazepines Scrn U Oth Cocaine Metabols U Cannabinoids Screen Alcohol, Quantitative < 10
[2018-07-25 16:25] LABS: BASO # 0.1 K/uL (0.0-0.2); BASO % 1.5 % (0.0-2.0); EOS # 0.2 K/uL (0.0-0.7); EOS % 2.7 % (0.0-4.0); HEMOGLOBIN 15.5 g/dL (12.0-18.0); LYMPH # 1.7 K/uL (1.0-4.3); LYMPH % 28.5 % (20.0-40.0); MEAN CELL VOLUME 85.7 fl (80.0-94.0); MEAN CORPUSCULAR HEMOGLOBIN 28.6 pg (27.0-31.0); MEAN CORPUSCULAR HGB CONC 33.4 g/dL (33.0-37.0); MEAN PLATELET VOLUME 8.8 fl (7.2-11.7); MONO # 0.5 K/uL (0.0-0.8); MONO % 8.4 % (0.0-10.0); NEUT # 3.6 K/uL (1.8-7.0); NEUT % 58.9 % (50.0-75.0); RBC 5.41 Mil/uL (4.40-5.90); RED CELL DISTRIBUTION WIDTH 13.6 % (11.5-14.5); WHITE BLOOD COUNT 6.1 K/uL (4.8-10.8)
[2018-07-25 16:28] LABS: URINE BILIRUBIN NEGATIVE (NEGATIVE); URINE BLOOD NEGATIVE (NEGATIVE); URINE CLARITY SLIGHTY-CLOUDY (Clear); URINE COLOR YELLOW (YELLOW); URINE GLUCOSE (UA) NEG (Normal); URINE LEUKOCYTE ESTERASE NEG Leu/uL (Negative); URINE PROTEIN NEGATIVE (NEGATIVE); URINE UROBILINOGEN 0.2-1.0 mg/dL (0.2-1.0)
[2018-07-25 16:35] LABS: ALB/GLOB RATIO 1.3 (1.0-2.1); ALBUMIN 4.5 g/dL (3.5-5.0); ALT/SGPT 38 U/L (21-72); AST/SGOT 28 U/L (17-59); BLOOD UREA NITROGEN 14 mg/dl (9-20); CALCIUM 10.1 mg/dL (8.4-10.2); GFR NON-AFRICAN AMERICAN > 60
--- NOTE | 2018-07-25 16:56 | RAD ---
HISTORY: psych admission COMPARISON: Chest x-ray performed 03/01/18 TECHNIQUE: Chest, one view. FINDINGS: Examination limited by habitus. LUNGS: Hypo inflation. Mild pulmonary venous congestion. No focal consolidation. Please note that chest x-ray has limited sensitivity for the detection of pulmonary masses. PLEURA: No significant pleural effusion identified. No definite pneumothorax . CARDIOVASCULAR: Borderline cardiomegaly. OSSEOUS STRUCTURES: Degenerative changes of the spine. VISUALIZED UPPER ABDOMEN: Unremarkable. OTHER FINDINGS: None. IMPRESSION: Hypoinflation. Borderline cardiomegaly.
[2018-07-25 17:00] LABS: BARBITURATES, UR NEGATIVE (NEGATIVE); BENZODIAZEPINES, UR POSITIVE (NEGATIVE); OPIATES, UR NEGATIVE (NEGATIVE); PHENCYCLIDINE, UR NEGATIVE (NEGATIVE)
[2018-07-25 19:47] VITALS: O2SAT 98
[2018-07-25] MEDS ORDERED: Alum-Mag Hydrox-Simethicone Susp (30 mL) PO PRN (20:27)
[2018-07-25] MEDS ORDERED: Bismuth Subsalicylate 262 mg/15 ml Sus (240 ml) PO PRN (20:27)
[2018-07-25] MEDS ORDERED: Magnesium Hydroxide Susp 30 ml UD PO PRN (20:27)
--- NOTE | 2018-07-25 20:46 | PCM.BM ---
<SurinderanthonyJabariKangsaundra Rudd - Last Filed: 07/25/18 20:43> Treatment Plan Problems - Problems identified on initial assessmt Feelings of Worthlessness Date Initiated: 07/25/18 Time Initiated: 20:44 Assessment reference: NA Status: Active Hopelessness/Helplessness Date Initiated: 07/25/18 Time Initiated: 20:45 Assessment reference: NA Status: Active Treatment assets and liabiliti Patient Assests: adapts well, cooperative, negotiates basic needs Patient Liabilities: live alone, poor support system, other (living situation) - Milieu Protocol Maintain good personal hygiene: daily Encourage regular showers, daily Remind patient to perform daily oral care, daily Assist patient to perform ADL's Conduct patient checks and document Observation sheet: Q15 minutes Maintain personal safety: every shift Educate patient to report safety concerns to staff, every shift Monitor environment for contraband/sharps Medication safety: Monitor for expected outcome, potential side effects: every shift, Assess barriers to learning: every shift, Assess readiness for medication education: every shift <Joslyn Umana - Last Filed: 07/26/18 09:57> - Diagnosis (1) Severe recurrent major depression w/psychotic features, mood-congruent Status: Chronic Interventions: Medication management, Individual and group therapy, Psychoeducation 07/26/18 09:58 <Savana Dash M - Last Filed: 07/27/18 15:04> Family Contact Family involvement: Famliy/SO not involved Family contact: Patient declines to allow family contact at present - Outside Agency [facility] Care involvment: Information-sharing Agency contact name: Adal Terry - counselor. Dr. Anoop MD Agency contact number: [phone] [facility] Care involvment: Information-sharing Agency contact name: Operations Examiner Agency contact number: [phone] - Goals for Treatment Patient goals for treatment: Pt to be encouraged to attend activity and clinical groups 3-5x per week to identify at least 2 contributing factors to depression and suicide attempt. Psycho-education to be provided to patient/ family regarding benefits of medications and treatment adherence. Pt to be encouraged to participate in group milieu to develop effective coping skills to reduce depression and free of suicide ideation. Coordinate discharge resource needs by providing referral for psychiatric treatment follow up in the community. Discharge/Continuing Care - Education Needs Education Needs: Patient Medication, Patient Diagnosis/Disease Process, Patient Coping Skills, Patient Anger Management skills, Patient Community resources, Patient Activities of Daily Living, Patient Personal Hygiene/Grooming, Patient Aftercare Safety Plan - Discharge Discharge Criteria: Tolerates medication w/o severe side effects, Free of Suicidal thoughts, Free of agitation, Normal sleep pattern, Ability to care for self, Reduction of target symptoms Discharge to:: Home (Pt is renting a room from a couple) - Additional Comments 07/27/18 14:55 Pt seen and discussed in team meeting. Reason for admission reviewed and discussed. Pt reported having several stressors that caused him to feel depressed and experience suicide ideation. Pt reported that he rents a room form a [place] couple and their father in law. Pt reported having a conflicted relationship with the the father in law and now with the couple's . Pt reported difficulty sleeping for couple of weeks. Pt reported that since being admitted he feels "better" in the context that "I think things out. " Pt reported that he is aware of the problem that is affecting him and is aware that he has to confront it. Pt reported that he plans to confront the issues post discharge. Pt reported that he plans on returning to his rented room and if the couple and their father in law continue to pick on him that he will contact the police and file harassing charges and also charges for bullying. Pt reported that he is current renting an illegal room so if he has to go as far as calling the city and reporting the couple that eh will. Pt denied any thoughts of hurting the couple or father in law physically. Pt's social and medical issues reviewed. Pt's medications reviewed and discussed. Tx plan reviewed and pt is agreeable. SW to continue to follow case. - Treatment Team Participation Discussed with Family/SO: No Was Patient/Family/SO present at Treatment Team Meeting: Yes
[2018-07-26 07:01] LABS: T4 6.41 ug/dl (5.5-11.0)
[2018-07-26 07:03] LABS: IRON 81 ug/dL (49-181)
[2018-07-26 07:12] LABS: % IRON SATURATION 27 % (20-55); TOTAL IRON BINDING CAPACITY 300 ug/dL (250-450)
[2018-07-26 07:19] LABS: FERRITIN 61.8 ng/Ml (17.9-464)
--- NOTE | 2018-07-26 07:34 | CARD ---
APPROVED REPORT Date of service: 07/25/2018 EKG Measurement Heart [id number] <Conclusion> Normal sinus rhythm Possible Left atrial enlargement Left axis deviation Left bundle branch block Abnormal ECG
--- NOTE | 2018-07-26 09:58 | PCM.PSYCH ---
Initial Psychiatric Evaluation - Initial Psychiatric Evaluation Type of Admission: Voluntary Legal Status: Capacity Chief Complaint (in patient's own words): "I was having suicidal thoughts." Patient's Reaction to Hospitalization: HPI: 68 male w/ h/o MDD w/ psychotic features presents w/ worsening depression, poor sleep/appetite, worsening AH and SI. Patient reports that he has conflict with the person he rents a room from. On Wednesday he started to have worsening AH of a "black man", stating "You are garbage. You are a piece of s *." He reports that he was having suicidal thoughts of hanging himself, starting a fire or cutting his neck. He continues to have suicidal ideation w/ o current plan or intent, but is tearful and distressed when discussing his recent suicidal thoughts. PMHx: Asthma, disc hernia, BPH PPHx: Several admissions in the past due to depression, psychosis and prior history of substance abuse (cocaine, MJ, ETOH; no current substance abuse). Suicide attempt by hanging in 2002. ALL: NKDA SHx: Rents a room in an apartment in [place], from [place]; denies current ETOH/ drug. 1/3 ppd cigarettes Current Medications: Active Medications Generic Name Dose Route Start Last Admin Trade Name Freq PRN Reason Stop Dose Admin Acetaminophen 650 mg 07/25/18 20:27 07/25/18 21:00 Tylenol 325mg Tab PO 650 mg Q4 PRN Administration Pain, moderate (4-7) Al Hydrox/Mg Hydrox/Simethicone 30 ml 07/25/18 20:27 Maalox Plus 30 Ml PO Q4 PRN Dyspepsia Bismuth Subsalicylate 524 mg 07/25/18 20:27 Pepto-Bismol PO Q4 PRN Diarrhea Lorazepam 0.5 mg 07/25/18 20:27 07/25/18 21:33 Ativan PO 08/08/18 20:28 0.5 mg HS PRN Administration Insomnia Lorazepam 0.5 mg 07/25/18 20:27 Ativan PO 08/08/18 20:28 Q6 PRN Anixety/Agitation Magnesium Hydroxide 30 ml 07/25/18 20:27 Milk Of Magnesia PO HS PRN Constipation Tamsulosin HCl 0.4 mg 07/25/18 21:15 07/26/18 08:28 Flomax PO 0.4 mg DAILY SANDRO Administration Past Psychiatric History - Past Psychiatric History Previous Treatment History: Inpatient Pertinent Medical Hx (Current Medical&Sleep Prob, Allergies): Allergies Allergy/AdvReac Type Severity Reaction Status Date / Time No Known Allergies Allergy Verified 07/25/18 14:42 Albuterol HFA [Ventolin HFA 90 mcg/actuation (8 g)] 1 puff IH BID PRN #1 unit Alprazolam [Xanax] 1 tab PO HS 07/25/18 Escitalopram [Lexapro] 20 mg PO HS 07/25/18 Fluticasone/Salmeterol [Fluticasone-Salmeterol 55-14] 1 inh BID PRN 07/25/18 QUEtiapine [SEROquel] 100 mg PO HS 07/25/18 Tiotropium [Spiriva] 1 inh DAILY 07/25/18 Zolpidem Tartrate [Zolpidem Tartrate] 1 tab PO HS 07/25/18 Review of Systems - Psychiatric Psychiatric: As Per HPI, Abnormal Sleep Pattern, Anxiety, Auditory Hallucinations, Change in Appetite, Change in Libido, Depression, Difficulty Concentrating, Hallucinations, Suicidal Ideation Mental Status Examination - Personal Presentation Personal Presentation: Looks stated age - Affect Affect: Constricted, Depressed - Motor Activity Motor Activity: Calm - Reliability in Providing Information Reliability in Providing Information: Fair - Speech Speech: Organized, Coherent - Mood Mood: Depressed, Anxious - Formal Thought Process Formal Thought Process: Hallucinations - Hallucinations/Delusions Hallucinations: Auditory - Obsessions/Compulsions Obsessions: No Compulsions: No - Cognitive Functions Orientation: Person, Place, Situation, Time Sensorium: Alert Attention/Concentration: Attentive Estimate of Intelligence: Average Judgement: Intact, as evidence by: Insight regarding need for hospitalization Memory: Recent intact, as evidence by: Ability to recall events of the day, Remote intact, as evidenced by: Abilit to recall sig. life events - Risk Risk: Diminished functioning - Strength & Assets Inventory Strength & Assets Inventory: Cooperative DSM 5 DX - DSM 5 DSM 5 Diagnosis: Major Depressive Disorder w/ Psychotic Features - Recommended/Plan of Treatment Treatment Recommendations and Plan of Treatment: Major Depressive Disorder w/ Psychotic Features -Admit to psychiatry unit -Individual and group therapy -Continue Lexapro 20 mg PO Daily -Increase Seroquel to 150 mg PO HS -Ativan 0.5 mg PO PRN anxiety -Medicine consult -Psychoeducation -Disposition planning Projected ELOS: 7-10 days Discharge Plan and Discharge Criteria: Discharge when patient is psychiatrically stable - Smoking Cessation Smoking Cessation Initiated: Yes
[2018-07-26] MEDS ORDERED: Albuterol HFA 90 mcg/actuation (8 g) IH PRN (10:39)
[2018-07-26] MEDS: Tiotropium 18 mcg Cap For Inhalation INH SCH (12:32)
[2018-07-26] MEDS: Multivitamin With Minerals Tab PO SCH (12:34)
[2018-07-26] MEDS: Fluticasone-Salmeterol 100-50mcg Diskus IH SCH ×2 (12:35→21:06)
--- NOTE | 2018-07-26 14:13 | CP.PCM.CON ---
History of Present Illness - History of Present Illness History of Present Illness: This is a 68 year old male iwth a pmh of asthma, depression, anxiety, schizophrenia, presenting to the inpatient psychiatric department due to suicidal and homicidal ideation and hallucinations. The patient normally takes Spiriva, Advair, and rescue albuterol inhaler for his asthma. Patient denies chest pain, shortness of breath, fevers, chills, nausea, vomiting, diarrhea, headache. All of the patient's questions were answered at the bedside. Review of Systems - Review of Systems Review of Systems: A 12 point review of systems was conducted and found to be negative other than what was mentioned in the HPI. Past Patient History - Infectious Disease Hx of Infectious Diseases: None - Tetanus Immunizations Tetanus Immunization: Unknown - Past Medical History & Family History Past Medical History?: Yes - Past Social History Alcohol: None Drugs: Denies - CARDIAC Hx Cardiac Disorders: Yes - PULMONARY Hx Respiratory Disorders: Yes - NEUROLOGICAL Hx Neurological Disorder: No - HEENT Hx HEENT Problems: Yes - RENAL Hx Chronic Kidney Disease: No - ENDOCRINE/METABOLIC Hx Endocrine Disorders: No - HEMATOLOGICAL/ONCOLOGICAL Hx Blood Disorders: No - INTEGUMENTARY Hx Dermatological Problems: No - MUSCULOSKELETAL/RHEUMATOLOGICAL Hx Musculoskeletal Disorders: Yes Hx Falls: No - GASTROINTESTINAL Hx Diarrhea: No Hx Hemorrhoids: Yes - GENITOURINARY/GYNECOLOGICAL Hx Genitourinary Disorders: No - PSYCHIATRIC Hx Substance Use: No - SURGICAL HISTORY Hx Surgeries: Yes Hx Cataract Extraction: Yes (LEFT EYE) - ANESTHESIA Hx Anesthesia: Yes Hx Anesthesia Reactions: No Hx Malignant Hyperthermia: No Meds Allergies/Adverse Reactions: Allergies Allergy/AdvReac Type Severity Reaction Status Date / Time No Known Allergies Allergy Verified 07/25/18 14:42 - Medications Medications: Current Medications Acetaminophen (Tylenol 325mg Tab) 650 mg PO Q4 PRN PRN Reason: Pain, moderate (4-7) Last Admin: 07/25/18 21:00 Dose: 650 mg Al Hydrox/Mg Hydrox/Simethicone (Maalox Plus 30 Ml) 30 ml PO Q4 PRN PRN Reason: Dyspepsia Albuterol (Ventolin Hfa 90 Mcg/Actuation (8 G)) 1 puff IH BID PRN PRN Reason: SOB Bismuth Subsalicylate (Pepto-Bismol) 524 mg PO Q4 PRN PRN Reason: Diarrhea Escitalopram Oxalate (Lexapro) 20 mg PO DAILY [facility] Last Admin: 07/26/18 12:34 Dose: 20 mg Lorazepam (Ativan) 0.5 mg PO HS PRN PRN Reason: Insomnia Stop: 08/08/18 20:28 Last Admin: 07/25/18 21:33 Dose: 0.5 mg Lorazepam (Ativan) 0.5 mg PO Q6 PRN PRN Reason: Anixety/Agitation Stop: 08/08/18 20:28 Magnesium Hydroxide (Milk Of Magnesia) 30 ml PO HS PRN PRN Reason: Constipation Multivitamins/Minerals (Therapeutic-M Tab) 1 tab PO DAILY [facility] Last Admin: 07/26/18 12:34 Dose: 1 tab Nicotine (Nicoderm Cq) 1 patch TD DAILY [facility] Quetiapine Fumarate (Seroquel) 150 mg PO HS [facility] Fluticasone/Salmeterol (Advair Diskus 100/50) 1 puff IH Q12 [facility] Last Admin: 07/26/18 12:35 Dose: 1 puff Tamsulosin HCl (Flomax) 0.4 mg PO DAILY [facility] Last Admin: 07/26/18 08:28 Dose: 0.4 mg Tiotropium Maxwell (Spiriva) 18 mcg INH DAILY [facility] Last Admin: 07/26/18 12:32 Dose: 18 mcg Zolpidem Tartrate (Ambien) 5 mg PO HS PRN PRN Reason: insomnia Physical Exam - Additional Findings Additional findings: Physical exam: Constitutional- cooperative, awake, alert Head- NCAT, PERRL Eye- PERRL, EOMI ENT- normal exam, MMM. Neck- normal inspection, supple, no JVD Respiratory- CTAB, no wheezes rales rhonchi Cardiovascular- RRR, +S1, +S2 no MRG GI/Abdominal- normal bowel sounds, soft, no mass, no hsm Skin- warm, dry Extremities Exam- normal capillary refill, normal inspection Neurological Exam- alert, awake, oriented Psych- depressed mood, bizarre affect Results - Vital Signs Recent Vital Signs: Last Vital Signs Temp 98.1 F 07/26/18 06:00 Pulse 80 07/26/18 06:00 Resp 18 07/26/18 06:00 BP 141/83 07/26/18 06:00 Pulse Ox 98 07/25/18 19:47 - Labs Result Diagrams: 07/25/18 16:19 07/25/18 16:19 Labs: Laboratory Results - last 24 hr 07/25/18 07/25/18 07/25/18 16:19 16:19 16:19 WBC 6.1 D RBC 5.41 Hgb 15.5 D Hct 46.4 MCV 85.7 MCH 28.6 MCHC 33.4 RDW 13.6 Plt Count 223 MPV 8.8 Neut % (Auto) 58.9 Lymph % (Auto) 28.5 Noble % (Auto) 8.4 Eos % (Auto) 2.7 Baso % (Auto) 1.5 Neut # (Auto) 3.6 Lymph # (Auto) 1.7 Noble # (Auto) 0.5 Eos # (Auto) 0.2 Baso # (Auto) 0.1 Sodium 139 Potassium 4.2 Chloride 104 Carbon Dioxide 28 Anion Gap 11 BUN 14 Creatinine 0.9 Est GFR ( Amer) > 60 Est GFR (Non-Af Amer) > 60 Random Glucose 91 Calcium 10.1 Iron TIBC % Saturation Ferritin Total Bilirubin 0.4 AST 28 ALT 38 Alkaline Phosphatase 47 Total Protein 7.8 Albumin 4.5 Globulin 3.3 Albumin/Globulin Ratio 1.3 Triglycerides Cholesterol LDL Cholesterol Direct HDL Cholesterol Vitamin B12 Free T4 Thyroxine (T4) TSH 3rd Generation Urine Color Urine Clarity Urine pH Ur Specific [place] Urine Protein Urine Glucose (UA) Urine Ketones Urine Blood Urine Nitrate Urine Bilirubin Urine Urobilinogen Ur Leukocyte Esterase Urine RBC (Auto) Urine Microscopic WBC Urine Opiates Screen Negative Urine Methadone Screen Negative Ur Barbiturates Screen Negative Ur Phencyclidine Scrn Negative Ur Amphetamines Screen Negative U Benzodiazepines Scrn Positive U Oth Cocaine Metabols Negative U Cannabinoids Screen Negative Alcohol, Quantitative < 10 07/25/18 07/26/18 07/26/18 16:19 05:50 05:50 WBC RBC Hgb Hct MCV MCH MCHC RDW Plt Count MPV Neut % (Auto) Lymph % (Auto) Noble % (Auto) Eos % (Auto) Baso % (Auto) Neut # (Auto) Lymph # (Auto) Noble # (Auto) Eos # (Auto) Baso # (Auto) Sodium Potassium Chloride Carbon Dioxide Anion Gap BUN Creatinine Est GFR ( Amer) Est GFR (Non-Af Amer) Random Glucose Calcium Iron 81 TIBC 300 % Saturation 27 Ferritin 61.8 Total Bilirubin AST ALT Alkaline Phosphatase Total Protein Albumin Globulin Albumin/Globulin Ratio Triglycerides 176 H Cholesterol 225 H LDL Cholesterol Direct 133 H HDL Cholesterol 40 Vitamin B12 319 Free T4 Thyroxine (T4) 6.41 TSH 3rd Generation 1.49 Urine Color Yellow Urine Clarity Slighty-cloudy Urine pH 6.0 Ur Specific [place] 1.018 Urine Protein Negative Urine Glucose (UA) Neg Urine Ketones Negative Urine Blood Negative Urine Nitrate Negative Urine Bilirubin Negative Urine Urobilinogen 0.2-1.0 Ur Leukocyte Esterase Neg Urine RBC (Auto) 4 H Urine Microscopic WBC 1 Urine Opiates Screen Urine Methadone Screen Ur Barbiturates Screen Ur Phencyclidine Scrn Ur Amphetamines Screen U Benzodiazepines Scrn U Oth Cocaine Metabols U Cannabinoids Screen Alcohol, Quantitative 07/26/18 05:50 WBC RBC Hgb Hct MCV MCH MCHC RDW Plt Count MPV Neut % (Auto) Lymph % (Auto) Noble % (Auto) Eos % (Auto) Baso % (Auto) Neut # (Auto) Lymph # (Auto) Noble # (Auto) Eos # (Auto) Baso # (Auto) Sodium Potassium Chloride Carbon Dioxide Anion Gap BUN Creatinine Est GFR ( Amer) Est GFR (Non-Af Amer) Random Glucose Calcium Iron TIBC % Saturation Ferritin Total Bilirubin AST ALT Alkaline Phosphatase Total Protein Albumin Globulin Albumin/Globulin Ratio Triglycerides Cholesterol LDL Cholesterol Direct HDL Cholesterol Vitamin B12 Free T4 0.77 L Thyroxine (T4) TSH 3rd Generation Urine Color Urine Clarity Urine pH Ur Specific [place] Urine Protein Urine Glucose (UA) Urine Ketones Urine Blood Urine Nitrate Urine Bilirubin Urine Urobilinogen Ur Leukocyte Esterase Urine RBC (Auto) Urine Microscopic WBC Urine Opiates Screen Urine Methadone Screen Ur Barbiturates Screen Ur Phencyclidine Scrn Ur Amphetamines Screen U Benzodiazepines Scrn U Oth Cocaine Metabols U Cannabinoids Screen Alcohol, Quantitative Assessment & Plan - Assessment and Plan (Free Text) Plan: This is a 68 year old male iwth a pmh of asthma, depression, anxiety, schizophrenia, presenting to the inpatient psychiatric department due to suicidal and homicidal ideation and hallucinations. The patient normally takes Spiriva, Advair, and rescue albuterol inhaler for his asthma. Patient denies chest pain, shortness of breath, fevers, chills, nausea, vomiting, diarrhea, headache. All of the patient's questions were answered at the bedside. 1) Asthma - Continue Advair - Continue Spiriva - Continue Albuterol inhaler PRN 2) Schizophrenia - management as per psych 3) Insomnia - continue Ambien 4) Depression/Anxiety - management as per psych 5) Schizophrenia - management as per psych
[2018-07-26 21:24] LABS: FOLATE 19.5 ng/mL
[2018-07-27] MEDS: Fluticasone-Salmeterol 100-50mcg Diskus IH SCH ×2 (08:26→21:04)
[2018-07-27] MEDS: Tiotropium 18 mcg Cap For Inhalation INH SCH (08:27)
[2018-07-27] MEDS: Multivitamin With Minerals Tab PO SCH (08:28)
--- NOTE | 2018-07-27 09:20 | PCM.PYCHPN ---
Psychiatric Progress Note - Psychiatric Progress Note Patient seen today, length of contact: Patient evaluated, case discussed w/ team , chart reviewed Patient Chief Complaint: "I was having suicidal thoughts." Problems Identified/Issues Discussed: Patient continues to be depressed and anxious. He discussed his conflicts he had with the person he rents a room from and discussed his other social stressors. He denies acute AH/VH/SI/HI. He continues to report difficulty sleeping at night and experiences violent nightmares. Medication Change: No Medical Record Reviewed: Yes Consults ordered or reviewed: Medicine consult Mental Status Examination - Cognitive Function Orientation: Person, Place, Situation, Time Memory: Intact Attention: WNL Concentration: WNL Association: WNL Fund of Knowledge: [facility] Decription of patient's judgement and insights: Improving I/J - Mood Mood: Depressed, Anxious - Affect Affect: Constricted, Depressed - Formal Thought Process Formal Thought Process: No Impairment Psychotic Thoughts and Behaviors: Denies acute AH/VH/paranoia - Suicidal Ideation Suicidal Ideation: No - Homicidal Ideation Homicidal Ideation: No Goal/Treatment Plan - Goal/Treatment Plan Need for Continued Stay: Remain at risks for inpatient hospitalization, Severe depression anxiety, Discharge may exacerbated symptoms Progress Toward Problem(s) and Goals/Treatment Plan: Major Depressive Disorder, Severe w/ Psychotic Features -Individual and group therapy -Continue Lexapro 20 mg PO Daily -Continue Seroquel 150 mg PO HS -Ativan 0.5 mg PO PRN anxiety -Medicine consult -Psychoeducation -Disposition planning Estimated Date of D/C: 08/01/18
--- NOTE | 2018-07-28 09:10 | PCM.PYCHPN ---
Psychiatric Progress Note - Psychiatric Progress Note Patient seen today, length of contact: Patient evaluated, case discussed w/ team , chart reviewed Patient Chief Complaint: "I was having suicidal thoughts." Problems Identified/Issues Discussed: Patient continues to be depressed and anxious. He denies acute suicidal ideation/plan/intent or auditory hallucinations. He continues to report poor sleep at night. Medication Change: No Medical Record Reviewed: Yes Consults ordered or reviewed: Medicine consult Mental Status Examination - Cognitive Function Orientation: Person, Place, Situation, Time Memory: Intact Attention: WNL Concentration: WNL Association: WNL Fund of Knowledge: [facility] Decription of patient's judgement and insights: Improving I/J - Mood Mood: Depressed, Anxious - Affect Affect: Constricted, Depressed - Speech Speech: Appropriate - Formal Thought Process Formal Thought Process: No Impairment Psychotic Thoughts and Behaviors: Denies acute AH/VH/paranoia - Suicidal Ideation Suicidal Ideation: No - Homicidal Ideation Homicidal Ideation: No Goal/Treatment Plan - Goal/Treatment Plan Need for Continued Stay: Remain at risks for inpatient hospitalization, Severe depression anxiety, Discharge may exacerbated symptoms Progress Toward Problem(s) and Goals/Treatment Plan: Major Depressive Disorder, Severe w/ Psychotic Features -Individual and group therapy -Continue Lexapro 20 mg PO Daily -Continue Seroquel 150 mg PO HS -Ativan 0.5 mg PO PRN anxiety -Medicine consult -Psychoeducation -Disposition planning Estimated Date of D/C: 08/01/18
[2018-07-28] MEDS: Fluticasone-Salmeterol 100-50mcg Diskus IH SCH ×2 (09:14→21:14)
[2018-07-28] MEDS: Tiotropium 18 mcg Cap For Inhalation INH SCH (09:15)
[2018-07-28] MEDS: Multivitamin With Minerals Tab PO SCH (09:16)
[2018-07-29] MEDS: Tiotropium 18 mcg Cap For Inhalation INH SCH (08:26)
[2018-07-29] MEDS: Multivitamin With Minerals Tab PO SCH (08:26)
--- NOTE | 2018-07-29 10:03 | PCM.PYCHPN ---
Psychiatric Progress Note - Psychiatric Progress Note Patient seen today, length of contact: Patient evaluated, case discussed w/ team , chart reviewed Patient Chief Complaint: "I was having suicidal thoughts." Problems Identified/Issues Discussed: Patient reports that his mood is starting to improve. She feels less depressed and anxious. He denies acute suicidal ideation/plan/intent or auditory hallucinations. He continues to report some difficulty falling asleep at night. Medication Change: No Medical Record Reviewed: Yes Consults ordered or reviewed: Medicine consult Mental Status Examination - Cognitive Function Orientation: Person, Place, Situation, Time Memory: Intact Attention: WNL Concentration: WNL Association: WN Fund of Knowledge: [facility] Decription of patient's judgement and insights: Improving I/J - Mood Mood: Depressed, Anxious - Affect Affect: Constricted, Depressed - Speech Speech: Appropriate - Formal Thought Process Formal Thought Process: No Impairment Psychotic Thoughts and Behaviors: Denies acute AH/VH/paranoia - Suicidal Ideation Suicidal Ideation: No - Homicidal Ideation Homicidal Ideation: No Goal/Treatment Plan - Goal/Treatment Plan Need for Continued Stay: Remain at risks for inpatient hospitalization, Severe depression anxiety, Discharge may exacerbated symptoms Progress Toward Problem(s) and Goals/Treatment Plan: Major Depressive Disorder, Severe w/ Psychotic Features -Individual and group therapy -Continue Lexapro 20 mg PO Daily -Continue Seroquel 150 mg PO HS -Ativan 0.5 mg PO PRN anxiety -Medicine consult -Psychoeducation -Disposition planning Estimated Date of D/C: 08/01/18
[2018-07-29] MEDS: Fluticasone-Salmeterol 100-50mcg Diskus IH SCH ×2 (11:28→21:03)
[2018-07-30] MEDS: Tiotropium 18 mcg Cap For Inhalation INH SCH (09:10)
[2018-07-30] MEDS: Fluticasone-Salmeterol 100-50mcg Diskus IH SCH ×2 (09:15→21:25)
[2018-07-30] MEDS: Multivitamin With Minerals Tab PO SCH (12:07)
--- NOTE | 2018-07-30 16:12 | PCM.PYCHPN ---
Psychiatric Progress Note - Psychiatric Progress Note Patient seen today, length of contact: Patient evaluated, case discussed w/ team , chart reviewed Patient Chief Complaint: feeling less depression processes contextual aspects in living situation with inlaws, denies ill will, sleeping and eating improving, rx adherent denies notable side effects Problems Identified/Issues Discussed: alteration in mood Medical Problems: per chart Diagnostic Results: per psychiatry per medicine per nursing per social work per recreational therapy DSM 5 Symptoms Update: alteration in mood Medication Change: No Medical Record Reviewed: Yes Consults ordered or reviewed: pt seen by hospitalist Mental Status Examination - Cognitive Function Orientation: Person, Place, Situation, Time Memory: Intact Attention: WNL Concentration: WNL Association: WN Fund of Knowledge: [facility] Decription of patient's judgement and insights: impaired - Mood Mood: Depressed, Anxious - Affect Affect: Constricted, Depressed - Speech Speech: Appropriate - Formal Thought Process Formal Thought Process: No Impairment - Suicidal Ideation Suicidal Ideation: No - Homicidal Ideation Homicidal Ideation: No Goal/Treatment Plan - Goal/Treatment Plan Need for Continued Stay: Remain at risks for inpatient hospitalization, Severe depression anxiety, Discharge may exacerbated symptoms Progress Toward Problem(s) and Goals/Treatment Plan: inpt milieu adjust medications per clinical status vital signs and clinical observation per protocol and per clinical status discharge planning in progress Estimated Date of D/C: 08/01/18 - Smoking Cessation Smoking Cessation Initiated: No Reason for not providing: pt defers
[2018-07-31] MEDS: Multivitamin With Minerals Tab PO SCH (08:26)
[2018-07-31] MEDS: Fluticasone-Salmeterol 100-50mcg Diskus IH SCH ×2 (08:26→22:03)
[2018-07-31] MEDS: Tiotropium 18 mcg Cap For Inhalation INH SCH (08:29)
[2018-08-01 05:58] VITALS: BP 124/71; PULSE 64; RESP 18; TEMP 98
--- NOTE | 2018-08-01 08:26 | PCM.PYCHDC ---
Mental Status Examination - Mental Status Examination Orientation: Person, Place, Situation, Time Memory: Intact Mood: Neutral Affect: Broad Speech: Appropriate Attention: WNL Concentration: WNL Association: WNL Fund of Knowledge: WNL Formal Thought Process: No Impairment Description of patient's judgement and insight: Good I/J Psychotic Thoughts and Behaviors: Denies acute AH/VH/paranoia Suicidal Ideation: No Current Homicidal Ideation?: No Discharge Summary - Discharge Note Reason for Hospitalization: HPI: 68 male w/ h/o MDD w/ psychotic features presents w/ worsening depression, poor sleep/appetite, worsening AH and SI. Patient reports that he has conflict with the person he rents a room from. On Wednesday he started to have worsening AH of a "black man", stating "You are garbage. You are a piece of s *." He reports that he was having suicidal thoughts of hanging himself, starting a fire or cutting his neck. He continues to have suicidal ideation w/ o current plan or intent, but is tearful and distressed when discussing his recent suicidal thoughts. PMHx: Asthma, disc hernia, BPH PPHx: Several admissions in the past due to depression, psychosis and prior history of substance abuse (cocaine, MJ, ETOH; no current substance abuse). Suicide attempt by hanging in 2002. ALL: NKDA SHx: Rents a room in an apartment in [place], from [place]; denies current ETOH/ drug. 1/3 ppd cigarettes Consultations:: List each consultation separately and include: 1. Reason for request. 2. Findings. 3. Follow-up Consultations: Medicine consult Summary of Hospital Course include:: 1. Description of specific treatment plan utilized for patients during their course of treatmen. 2. Summarize the time- course for resolution of acute symptoms and/or regressed behaviors. 3. Describe issues identified and worked on during hospitalization. 4. Describe medication utilized. 5. Describe medical problems identified and treated. 6. Reassessment of suicide risk Summary of Hospital Course: Patient was admitted to the psychiatry unit. Individual and group therapy were provided. Patient was stabilized on Lexapro 20 mg PO Daily and Seroquel 150 mg PO HS. Patient reports improvement in mood. He denies acute AH/VH/SI/HI. He is psychiatrically stable for discharge with outpatient follow-up. - Diagnosis (1) Severe recurrent major depression w/psychotic features, mood-congruent Current Visit: No Status: Chronic - Final Diagnosis (DSM 5) Condition upon Discharge: STABLE DSM 5: Major Depressive Disorder w/ Psychotic Features Disposition: HOME/ ROUTINE Follow-up Treatment Plan: Major Depressive Disorder, Severe w/ Psychotic Features -Individual and group therapy -Continue Lexapro 20 mg PO Daily -Continue Seroquel 150 mg PO HS -Medicine consult -Psychoeducation -Discharge to home w/ outpatient psychiatric follow-up Prescriptions/Medication Reconciliation: QUEtiapine [SEROquel] 150 mg PO HS #90 tab Tamsulosin [Flomax] 0.4 mg PO DAILY #30 cap - Smoking Cessation Smoking Cessation Medication prescribed: Yes - Antipsychotic Medications Pt discharged on 2 or more routine antipsychotic medications: No
[2018-08-01] MEDS: Fluticasone-Salmeterol 100-50mcg Diskus IH SCH (08:39)
[2018-08-01] MEDS: Tiotropium 18 mcg Cap For Inhalation INH SCH (08:39)
[2018-08-01] MEDS: Multivitamin With Minerals Tab PO SCH (08:41)
== END 2018-08-01 11:38 | disposition home or self-care (01) | DRG 430 ==
LOC: H.ER 14:35 → H.ERHOLD 19:24 → H.STEP 20:25
PROVIDERS: ADMIT Psychiatry & Neurology Psychiatry; ATTEND Psychiatry & Neurology Psychiatry
PROC: GZHZZZZ Group Psychotherapy (ICD-10-PCS; principal; 2018-07-25)
DX: F33.3 Major depressive disorder, recurrent, severe with psychotic symptoms (principal); J45.909 Unspecified asthma, uncomplicated; N40.0 Benign prostatic hyperplasia without lower urinary tract symptoms; R45.850 Homicidal ideations; R45.851 Suicidal ideations; F17.210 Nicotine dependence, cigarettes, uncomplicated

== ENCOUNTER 2018-08-17 19:43 | Emergency (ER) | payer MEDICAID ==
[2018-08-17 19:43] VITALS: BMI 29.6
--- NOTE | 2018-08-17 21:59 | ED PDOC ---
HPI: Psych/Substance Abuse Time Seen by Provider: 08/17/18 20:40 Chief Complaint (Nursing): Psychiatric Evaluation Chief Complaint (Provider): Psychiatric Evaluation History Per: Patient, It Help Desk Manager (#[id number]) History/Exam Limitations: no limitations Onset/Duration Of Symptoms: Mins (prior to arrival) Additional Complaint(s): 68 year old male presents to the ED for an involuntary psychiatric evaluation. Patient states that he was at home in [place] when the police showed up, arresting him and telling him he had to go to the hospital for a psych eval. 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 While he does note a hx of schizophrenia and depression, he reports no active symptoms and last saw his psychiatrist last week, and will again 09/19. At this time, he denies all complaints besides a mild headache and feeling hungry. PMD: [facility] action group Past Medical History Reviewed: Historical Data, Nursing Documentation, Vital Signs Vital Signs: Last Vital Signs Temp 97.3 F L 08/17/18 19:47 Pulse 104 H 08/17/18 19:47 Resp 16 08/17/18 19:47 BP 136/89 08/17/18 19:47 Pulse Ox 98 08/17/18 19:47 - Medical History PMH: Anxiety, Asthma, Benign Prostatic Hyperplasia, Depression, Schizophrenia Denies: Diabetes, Hepatitis, HIV, HTN, Chronic Kidney Disease, Seizures, Sexually Transmitted Disease - Surgical History Surgical History: No Surg Hx - Family History Family History: States: Unknown Family Hx - Social History Current smoker - smoking cessation education provided: No Alcohol: None Drugs: Denies - Immunization History Hx Tetanus Toxoid Vaccination: No Hx Influenza Vaccination: No Hx Pneumococcal Vaccination: No - Home Medications Home Medications: Ambulatory Orders Medication Instructions Recorded RX: Albuterol HFA [Ventolin HFA 90 1 puff IH BID PRN #1 unit 03/01/18 mcg/actuation (8 g)] RX: Escitalopram [Lexapro] 20 mg PO HS 07/25/18 RX: Tiotropium [Spiriva] 1 inh DAILY 07/25/18 RX: Zolpidem Tartrate 1 tab PO HS 07/25/18 RX: Fluticasone/Salmeterol 100/50 1 puff IH Q12 puff 08/01/18 [Advair Diskus 100/50] RX: Multimineral/Multivitamin 1 tab PO DAILY tab 08/01/18 [Therapeutic-M Tab] RX: QUEtiapine [SEROquel] 150 mg PO HS #90 tab 08/01/18 RX: Tamsulosin [Flomax] 0.4 mg PO DAILY #30 cap 08/01/18 - Allergies Allergies/Adverse Reactions: Allergies Allergy/AdvReac Type Severity Reaction Status Date / Time No Known Allergies Allergy Verified 07/25/18 14:42 Review of Systems ROS Statement: Except As Marked, All Systems Reviewed And Found Negative Neurological: Positive for: Headache (mild) Physical Exam - Reviewed Nursing Documentation Reviewed: Yes Vital Signs Reviewed: Yes - Physical Exam Appears: Positive for: No Acute Distress Head Exam: Positive for: ATRAUMATIC, NORMOCEPHALIC Skin: Positive for: Normal Color, Warm, Dry. Negative for: Cyanosis Eye Exam: Positive for: Normal appearance, EOMI, PERRL ENT: Positive for: Normal ENT Inspection Neck: Positive for: Normal, Painless ROM, Supple Cardiovascular/Chest: Positive for: Regular Rate, Rhythm Respiratory: Positive for: Normal Breath Sounds. Negative for: Accessory Muscle Use, Respiratory Distress Gastrointestinal/Abdominal: Positive for: Normal Exam, Soft. Negative for: Tenderness Extremity: Positive for: Normal ROM. Negative for: Calf Tenderness, Other (clubbing) Neurologic/Psych: Positive for: Alert, Oriented (x3), Mood/Affect (calm, cooperative) - ECG O2 Sat by Pulse Oximetry: 98 (RA) Pulse Ox Interpretation: Normal Medical Decision Making Medical Decision Making: Time: 2099 Initial Impression: Pt brought in by police for psych eval with unclear history as to why involuntarily brought in Initial Plan: --Crisis evaluation --Tylenol 650 mg PO --Reevaluation Pt signed out to Dr. Garza pending crisis evaluation for disposition. Scribe Attestation: Documented by Shanel Gee, acting as a scribe for Doreen Francois MD. Provider Scribe Attestation: All medical record entries made by the Scribe were at my direction and personally dictated by me. I have reviewed the chart and agree that the record accurately reflects my personal performance of the history, physical exam, medical decision making, and the department course for this patient. I have also personally directed, reviewed, and agree with the discharge instructions and disposition. Disposition - Clinical Impression Clinical Impression: Depression - Disposition Disposition: Transfer of Care Disposition Time: 22:57 (Transfer to Dr. Kayla escobedo crisis evaluation.) Condition: STABLE Instructions: Depression Forms: [facility] (Kyrgyz) Print Language: SENEGALESE
--- NOTE | 2018-08-17 23:24 | ED PDOC ---
- ECG O2 Sat by Pulse Oximetry: 98 (RA) Medical Decision Making Medical Decision Makin:00 -Patient endorsed to provider by Dr. Francois, pending crisis evaluation. 23:50 -Patient evaluated by crisis and psychiatrically clear for discharge, diagnosis of depression per Dr. Crawley. Disposition - Clinical Impression Clinical Impression: Depression - POA Present On Arrival: None - Disposition Disposition: Routine/Home Disposition Time: 23:50 Condition: STABLE Instructions: Depression Forms: [facility] (Tuvaluan) Print Language: MACEDONIAN
[2018-08-18 00:55] VITALS: RESP 18
[2018-08-18 00:58] VITALS: BP 138/85; PULSE 86; TEMP 97.9
[2018-08-18 06:13] VITALS: O2SAT 98
== END 2018-08-18 00:02 | disposition home or self-care (01) ==
LOC: H.ER 19:43
DX: F32.9 Major depressive disorder, single episode, unspecified (principal); F20.9 Schizophrenia, unspecified

== ENCOUNTER 2018-08-25 17:21 | Emergency (ER) | payer MEDICAID ==
[2018-08-25 17:22] VITALS: BMI 29.6
[2018-08-25 17:27] VITALS: BP 124/73; PULSE 85; RESP 16; TEMP 98; O2SAT 96
[2018-08-25] MEDS ORDERED: Albuterol-Ipratrop 3 mg / 0.5 (3 ml) UD INH STA ×2 (18:19→19:57)
--- NOTE | 2018-08-25 18:32 | ED PDOC ---
HPI: SOB/CHF/COPD History Per: Patient History/Exam Limitations: no limitations Additional Complaint(s): 68 y/o M with a PMHx of asthma and depression with psychotic features present to ED complaining of SOB that began yesterday after applying insecticide spray orally by mistake. Pt reports nasal congestion, frontal headache, runny nose and productive cough with yellow thick sputum for a few days. Pt has used Albuterol nebulizer last night and the pump this morning with some improvement of SOB. No ill contacts. Pt denies suicidal ideation or harm to others. Pt still smokes ~5 cigarettes a days. Pt denies fever, chills, dizziness, hearing deficit, hearing voices, chest pain, palpitations, nausea, vomiting, abdominal pain, diarrhea, rash or peripheral edema. NKA Meds: Albuterol, Advair, Tiopropium, Seroquel, Xanax PMHx: asthma, depression with psychotic features, BPH PSHx: cataract repair. FHx: NC SHx: Pt smokes tobacco 5 cigarettes a day, no alcohol and no rec drugs. <Asher Quesada - Last Filed: 08/25/18 18:34> <Fazal Nj III - Last Filed: 08/30/18 15:34> Time Seen by Provider: 08/25/18 17:39 Chief Complaint (Nursing): Shortness Of Breath Supervising Attending Note - Attestation: I have personally seen and examined this patient.: Yes I have fully participated in the care of the patient.: Yes I have reviewed all pertinent clinical information, including history, physical exam and plan: Yes - Notes: Notes:: 68yo male s/p inhalation of insectiside yesterday, no resp distress but cough, r/o pneumonitis solumedrol, duoneb, cxr and labs ordered EKG similar to prior Endorse to Dr Kayla Vallejop <Fazal Nj III - Last Filed: 08/30/18 15:34> Past Medical History Vital Signs: Last Vital Signs Temp 98.0 F 08/25/18 17:23 Pulse 85 08/25/18 17:23 Resp 16 08/25/18 17:23 BP 124/73 08/25/18 17:23 Pulse Ox 96 08/25/18 17:23 - Medical History PMH: Anxiety, Asthma, Benign Prostatic Hyperplasia, Depression, Schizophrenia Denies: Diabetes, Hepatitis, HIV, HTN, Chronic Kidney Disease, Seizures, Sexually Transmitted Disease - Surgical History Other surgeries: cataract repair - Family History Family History: States: Unknown Family Hx - Living Arrangements Living Arrangements: Alone - Social History Current smoker - smoking cessation education provided: Yes SMOKER/PACKS PER DAY:: 5 Alcohol: None Drugs: Denies - Immunization History Hx Tetanus Toxoid Vaccination: No Hx Influenza Vaccination: No Hx Pneumococcal Vaccination: No <Asher Quesada - Last Filed: 08/25/18 18:34> Vital Signs: Last Vital Signs Temp 98.0 F 08/25/18 17:23 Pulse 85 08/25/18 17:23 Resp 16 08/25/18 17:23 BP 124/73 08/25/18 17:23 Pulse Ox 96 08/25/18 18:43 <Fazal Nj III - Last Filed: 08/30/18 15:34> - Home Medications Home Medications: Ambulatory Orders Medication Instructions Recorded RX: Albuterol HFA [Ventolin HFA 90 1 puff IH BID PRN #1 unit 03/01/18 mcg/actuation (8 g)] RX: Escitalopram [Lexapro] 20 mg PO HS 07/25/18 RX: Tiotropium [Spiriva] 1 inh DAILY 07/25/18 RX: Zolpidem Tartrate 1 tab PO HS 07/25/18 RX: Fluticasone/Salmeterol 100/50 1 puff IH Q12 puff 08/01/18 [Advair Diskus 100/50] RX: Multimineral/Multivitamin 1 tab PO DAILY tab 08/01/18 [Therapeutic-M Tab] RX: QUEtiapine [SEROquel] 150 mg PO HS #90 tab 08/01/18 RX: Tamsulosin [Flomax] 0.4 mg PO DAILY #30 cap 08/01/18 Methylprednisolone [Medrol Dosepak] 4 mg PO ASDIR #1 pkg 08/25/18 RX: Albuterol HFA [Ventolin HFA 90 1 - 2 puff IH Q6 PRN #1 inhaler 08/25/18 mcg/actuation (8 g)] - Allergies Allergies/Adverse Reactions: Allergies Allergy/AdvReac Type Severity Reaction Status Date / Time No Known Allergies Allergy Verified 08/25/18 17:23 Curb-65 Severity Score - CURB-65 Severity Score Confusion: No Respiratory Rate greater than/equal to 30: No Systolic BP <90 or Diastolic BP less than/equal 60mmHg: No Age >64: Yes Curb-65 Score: 1 Percentage 30-day mortality: 2.7% <Asher Quesada - Last Filed: 08/25/18 18:34> Wells Criteria for PE - Wells Criteria for Pulmonary Embolism Clinical Signs and Symptoms of DVT: No P.E is #1 Diagnosis, or Equally Likely: No Heart Rate >100: No Immobilization at least 3 days;Surgery previous 4 weeks: No Previous, objectively diagnosed PE or DVT: No Hemoptysis: No Malignancy w/treatment within 6 months, or palliative: No Total Score: 0 <Asher Quesada - Last Filed: 08/25/18 18:34> Review of Systems Constitutional: Negative for: Fever, Chills Eyes: Negative for: Pain, Conjunctivae Inflammation ENT: Positive for: Nose Discharge, Nose Congestion. Negative for: Ear Pain, Ear Discharge Cardiovascular: Negative for: Chest Pain, Palpitations Respiratory: Positive for: Cough, Shortness of Breath. Negative for: Hemoptysis Gastrointestinal: Negative for: Nausea, Vomiting, Abdominal Pain, Diarrhea Genitourinary Male: Negative for: Dysuria, Frequency Skin: Negative for: Rash Psych: Negative for: Anxiety, Depression, Suicidal ideation <Asher Quesada Last Filed: 08/25/18 18:34> Physical Exam - Physical Exam Appears: Positive for: No Acute Distress, Uncomfortable Head Exam: Positive for: ATRAUMATIC, NORMAL INSPECTION Skin: Positive for: Normal Color Eye Exam: Positive for: EOMI ENT: Positive for: Sinus Pain/Drainage, Nasal Congestion, Pharyngeal Erythema. Negative for: Tonsillar Exudate, Tonsillar Swelling Neck: Positive for: Normal, Supple Cardiovascular/Chest: Positive for: Regular Rate, Rhythm Respiratory: Positive for: Decreased Breath Sounds (coarse breath sounds bilaterally.). Negative for: Accessory Muscle Use, Respiratory Distress Gastrointestinal/Abdominal: Positive for: Bowel Sounds, Soft. Negative for: Tenderness, Organomegaly Extremity: Positive for: Normal ROM. Negative for: Tenderness, Pedal Edema, Calf Tenderness Lymphatic: Negative for: Adenopathy (No cervical lymphadenopahty.) Neurologic/Psych: Positive for: Alert, Oriented <Asher Quesada - Last Filed: 08/25/18 18:34> - ECG O2 Sat by Pulse Oximetry: 96 <Asher Quesada - Last Filed: 08/25/18 18:34> - Laboratory Results Result Diagrams: 08/25/18 18:45 08/25/18 18:45 <Fazal Nj III - Last Filed: 08/30/18 15:34> Medical Decision Making Medical Decision Making: At 18:17, pt was examined, not in respiratory distress but coughing, able to talk with NO difficulties. --CBC, CMP and CXR --Duoneb STAT --IV Solumedrol <Asher Quesada - Last Filed: 08/25/18 18:34> Medical Decision Makin:00 Patient with persistent chest tightness, Duoneb ordered. Patient signed out to Dr. Garza pending reassessment and final disposition. <Fazal Nj III - Last Filed: 08/30/18 15:34> Disposition <Asher Quesada - Last Filed: 08/25/18 18:34> - Patient ED Disposition Is Patient to be Admitted: Transfer of Care - Disposition Disposition: Transfer of Care Disposition Time: 19:56 Patient Signed Over To: Xu Garza <Fazal Nj III - Last Filed: 08/30/18 15:34> - Clinical Impression Clinical Impression: Bronchitis - Disposition Condition: STABLE Prescriptions: RX: Albuterol HFA [Ventolin HFA 90 mcg/actuation (8 g)] 1 - 2 puff IH Q6 PRN #1 inhaler PRN Reason: Shortness Of Breath Methylprednisolone [Medrol Dosepak] 4 mg PO ASDIR #1 pkg Instructions: Acute Bronchitis Forms: [facility] (Polish)
[2018-08-25] MEDS ORDERED: Albuterol-Ipratrop 3 mg / 0.5 (3 ml) UD ONE ×2 (18:57→20:03)
[2018-08-25 19:02] LABS: BASO # 0.1 K/uL (0.0-0.2); EOS # 0.4 K/uL (0.0-0.7); EOS % 6.9 % (0.0-4.0); HEMOGLOBIN 14.4 g/dL (12.0-18.0); LYMPH # 1.4 K/uL (1.0-4.3); LYMPH % 21.8 % (20.0-40.0); MEAN CELL VOLUME 85.7 fl (80.0-94.0); MEAN CORPUSCULAR HEMOGLOBIN 28.3 pg (27.0-31.0); MEAN PLATELET VOLUME 9.2 fl (7.2-11.7); MONO # 0.7 K/uL (0.0-0.8); MONO % 11.4 % (0.0-10.0); NEUT # 3.7 K/uL (1.8-7.0); NEUT % 58.9 % (50.0-75.0); NRBC % 0.1 % (0.0-0.0); RBC 5.1 Mil/uL (4.40-5.90); RED CELL DISTRIBUTION WIDTH 14.3 % (11.5-14.5); WHITE BLOOD COUNT 6.2 K/uL (4.8-10.8)
[2018-08-25 19:08] LABS: ALB/GLOB RATIO 1.2 (1.0-2.1); ALBUMIN 4.4 g/dL (3.5-5.0); ALT/SGPT 47 U/L (21-72); AST/SGOT 35 U/L (17-59); BLOOD UREA NITROGEN 15 mg/dl (9-20); CALCIUM 9.8 mg/dL (8.4-10.2); GFR NON-AFRICAN AMERICAN > 60
--- NOTE | 2018-08-25 20:08 | ED PDOC ---
- Laboratory Results Result Diagrams: 08/25/18 18:45 08/25/18 18:45 - ECG O2 Sat by Pulse Oximetry: 96 (RA) Pulse Ox Interpretation: Normal Medical Decision Making Medical Decision Makin Patient signed out to me by Dr. Nj pending reassessment, final disposition. 2209 On reassessment, patient reports marked improvement in symptoms. Chest x-ray reviewed, with no acute diseases. Labs reviewed and are within normal limits. Patient stable for discharge home. Diagnosis: Inhalation bronchitis Scribe Attestation: Documented by Diya Grover, acting as a scribe for Xu Garza MD. Provider Scribe Attestation: All medical record entries made by the Scribe were at my direction and personally dictated by me. I have reviewed the chart and agree that the record accurately reflects my personal performance of the history, physical exam, medi blayne decision making, and the department course for this patient. I have also personally directed, reviewed, and agree with the discharge instructions and disposition. Disposition - Clinical Impression Clinical Impression: Bronchitis - POA Present On Arrival: None - Disposition Disposition: Routine/Home Disposition Time: 22:20 Condition: STABLE Prescriptions: Albuterol HFA [Ventolin HFA 90 mcg/actuation (8 g)] 1 - 2 puff IH Q6 PRN #1 inhaler PRN Reason: Shortness Of Breath Methylprednisolone [Medrol Dosepak] 4 mg PO ASDIR #1 pkg Instructions: Acute Bronchitis Forms: [facility] (Qatari)
--- NOTE | 2018-08-26 10:20 | RAD ---
Date of service: 08/25/2018 PROCEDURE: CHEST RADIOGRAPH, 1 VIEW HISTORY: SOB COMPARISON: 07/25/2018 FINDINGS: LUNGS: Examination technically limited by apical lordotic positioning. No infiltrate. PLEURA: No pneumothorax or pleural fluid seen. CARDIOVASCULAR: Normal. OSSEOUS STRUCTURES: No significant abnormalities. VISUALIZED UPPER ABDOMEN: Normal. OTHER FINDINGS: None. IMPRESSION: No active disease.
== END 2018-08-25 21:55 | disposition home or self-care (01) ==
LOC: H.ER 17:21
DX: J40 Bronchitis, not specified as acute or chronic (principal); F17.210 Nicotine dependence, cigarettes, uncomplicated
CPT/HCPCS: 71045; 80053; 85025; 94640; 96374; 99283; J2930

== ENCOUNTER 2018-09-15 22:35 | Emergency (ER) | payer MEDICAID ==
[2018-09-15 22:35] VITALS: BMI 29.6
[2018-09-15 22:40] VITALS: RESP 20; TEMP 98; O2SAT 99
--- NOTE | 2018-09-15 23:21 | ED PDOC ---
HPI: General Adult Time Seen by Provider: 09/15/18 22:50 Chief Complaint (Nursing): Medical Clearance Chief Complaint (Provider): clearance for incarceration History Per: Patient History/Exam Limitations: no limitations Additional Complaint(s): 68 y/o male history of depression, schizophrenia, anxiety, here in police custody for clearance for incarceration. Patient denies acute medical or psychiatric complaints. Past Medical History Reviewed: Historical Data, Nursing Documentation, Vital Signs Vital Signs: Last Vital Signs Temp 98.0 F 09/15/18 22:38 Pulse 102 H 09/15/18 22:38 Resp 20 09/15/18 22:38 BP 145/95 H 09/15/18 22:38 Pulse Ox 99 09/15/18 22:38 - Medical History PMH: Anxiety, Asthma, Benign Prostatic Hyperplasia, Depression, Schizophrenia Denies: Diabetes, Hepatitis, HIV, HTN, Chronic Kidney Disease, Seizures, Sexually Transmitted Disease - Family History Family History: States: Unknown Family Hx - Immunization History Hx Tetanus Toxoid Vaccination: No Hx Influenza Vaccination: No Hx Pneumococcal Vaccination: No - Home Medications Home Medications: Ambulatory Orders Medication Instructions Recorded Albuterol HFA [Ventolin HFA 90 1 puff IH BID PRN #1 unit 03/01/18 mcg/actuation (8 g)] Escitalopram [Lexapro] 20 mg PO HS 07/25/18 Tiotropium [Spiriva] 1 inh DAILY 07/25/18 Zolpidem Tartrate 1 tab PO HS 07/25/18 Fluticasone/Salmeterol 100/50 1 puff IH Q12 puff 08/01/18 [Advair Diskus 100/50] Multimineral/Multivitamin 1 tab PO DAILY tab 08/01/18 [Therapeutic-M Tab] QUEtiapine [SEROquel] 150 mg PO HS #90 tab 08/01/18 Tamsulosin [Flomax] 0.4 mg PO DAILY #30 cap 08/01/18 Albuterol HFA [Ventolin HFA 90 1 - 2 puff IH Q6 PRN #1 inhaler 08/25/18 mcg/actuation (8 g)] Methylprednisolone [Medrol Dosepak] 4 mg PO ASDIR #1 pkg 08/25/18 - Allergies Allergies/Adverse Reactions: Allergies Allergy/AdvReac Type Severity Reaction Status Date / Time No Known Allergies Allergy Verified 09/15/18 22:38 Review of Systems ROS Statement: Except As Marked, All Systems Reviewed And Found Negative Physical Exam - Reviewed Nursing Documentation Reviewed: Yes Vital Signs Reviewed: Yes - Physical Exam Appears: Positive for: Well, Non-toxic, No Acute Distress Head Exam: Positive for: ATRAUMATIC, NORMAL INSPECTION, NORMOCEPHALIC Skin: Positive for: Normal Color Eye Exam: Positive for: Normal appearance ENT: Positive for: Normal ENT Inspection Cardiovascular/Chest: Positive for: Regular Rate, Rhythm Respiratory: Positive for: Normal Breath Sounds Gastrointestinal/Abdominal: Positive for: Normal Exam Back: Positive for: Normal Inspection Extremity: Positive for: Normal ROM Neurologic/Psych: Positive for: Alert, Oriented (x3) - ECG O2 Sat by Pulse Oximetry: 99 - Progress ED Course And Treament: Patient evaluated by fuel system maintenance worker and cleared for discharge as per Dr. Moffett Disposition - Clinical Impression Clinical Impression: Medical clearance for incarceration, Adjustment disorder - Patient ED Disposition Is Patient to be Admitted: No - Disposition Disposition: Discharged/Transfer to Law Enforcement Disposition Time: 00:54 Condition: STABLE Additional Instructions: Patient medically and psychiatrically cleared for incarceration Instructions: Adjustment Disorder
[2018-09-16 01:19] VITALS: BP 126/72; PULSE 79
== END 2018-09-16 02:12 ==
LOC: H.ER 22:35
DX: F43.20 Adjustment disorder, unspecified (principal)